=== PATIENT | female | born 1940 | race Caucasian/White ===

== ENCOUNTER 2019-07-26 14:24 | Emergency (ER) | payer MEDICARE, SELFPAY ==
--- NOTE | ~2019-07-26 | XR_ITS ---
EXAMINATION: XR abdomen/kub 1V INDICATION: Left kidney stone TECHNIQUE: Supine views of the abdomen were obtained on 2 radiographs. COMPARISON: CT from today FINDINGS: A 4 mm stone is noted in the lower pole of the left kidney. No additional abnormal calcific ations identified. The bowel gas pattern is normal. There is a small right pleural effusion. IMPRESSION: 1. Left nephrolithiasis. Reviewed, dictated and finalized at location A. IMPRESSION: 1. Left nephrolithiasis.
--- NOTE | ~2019-07-26 | CT_ITS ---
EXAMINATION: CT abdomen pelvis wo con DATE: 07/26/2019 15:18 INDICATION: Hematuria TECHNIQUE: Computed tomography (CT) of the abdomen and pelvis was performed without intravenous contr ast. The dose-length product (DLP) was 170.70 mGy-cm. Automated exposure control and iterative recons truction technique were employed. COMPARISON: 01/31/2015 FINDINGS: There is a small right pleural effusion. Mild atelectasis is noted in the visualized lung b ases. The heart size is normal. The liver surface is nodular. The spleen, pancreas, and adrenal gland s are normal. There is a 4 mm nonobstructing stone in the lower pole of the left kidney. The right ki dney is unremarkable. No stones are identified in the ureters or bladder. There is no hydronephrosis or hydroureter. No pathologically enlarged abdominal or pelvic lymph nodes are identified. There is n o free intraperitoneal gas or evidence of bowel obstruction. There is calcified atherosclerosis of th e aorta and many of the other arteries. There is a chronic burst fracture of T12. IMPRESSION: 1. 4 mm nonobstructing stone of the left kidney lower pole. 2. Cirrhosis. 3. Small right pleural effusion. Reviewed, dictated and finalized at location A.
[2019-07-26 14:32] VITALS: BP 110/73; PULSE 114; RESP 20; TEMP 36.4; O2SAT 93
--- NOTE | 2019-07-26 15:10 | ED.FEMALEGU ---
HPI - Female Genitourinary General Chief complaint: Urogenital-Female Stated complaint: abnormal ua Time Seen by Provider: 07/26/19 14:35 Source: patient Mode of arrival: ambulatory Limitations: no limitations History of Present Illness HPI Narrative: Patient presents with chief complaint of painless hematuria for the past week. Patient states that her PCP Dr. Miramontes ordered a UA and when I received the results they called today and told her to present to the emergency department. Patient denies any fever, chills, dysuria, vomiting, diarrhea. Patient states that she has discomfort to the lower left side of her abdomen which has been steady and present for many years. Patient states she has no idea why she has been told to come to the emergency department or what needs to be performed. Patient has not had any increased needing her oxygen which is at 3 L by nasal cannula which she is at rest and for when she is out and active. Related Data Home Medications Medication Instructions Recorded Confirmed calcium carbonate 600 mg calcium 600 mg PO DAILY 05/24/19 (1,500 mg) tablet naproxen sodium 220 mg tablet 220 mg PO Q12H 05/24/19 umeclidinium 62.5 mcg-vilanterol 1 inhalation INHALATION DAILY 05/24/19 25 mcg/actuation powdr for inhalation multivitamin 1 tablet PO DAILY 07/26/19 07/26/19 therapeutic multivitamin 1 tablet PO DAILY 07/26/19 07/26/19 [Thera-Tabs] Allergies Allergy/AdvReac Type Severity Reaction Status Date / Time No Known Allergies Allergy Unverified 07/26/19 14:55 Review of Systems Review of Systems: Narrative: CONSTITUTIONAL: Denies fever, chills, or sweats. EYES: Denies visual changes, redness, or discharge. ENT: Denies rhinorrhea, congestion, sore throat, or otalgia. CARDIOVASCULAR: Denies chest pain, palpitations, or edema. RESPIRATORY: Denies cough or dyspnea. GASTROINTESTINAL: Reports baseline lower left abdominal pain, denies nausea, vomiting, or diarrhea. GENITOURINARY: Denies dysuria reports hematuria. SKIN: Denies rash or itching. MUSCULOSKELETAL: Denies back pain, joint pain, or myalgia. NEUROLOGIC: Denies headache, numbness, dizziness, or weakness. PSYCHIATRIC: Denies anxiety or depression. [facility] Social History Social History (Updated 07/26/19 @ 15:15 by Bennett López PA-C) Substance use: never Gender identity (if verbalized by the patient): Female Exam Narrative: Exam Narrative: GENERAL: Elderly, frail. HEAD: Normocephalic, atraumatic. EYES: PERRLA and EOMI. ENT: Nares clear, no rhinorrhea or epistaxis. Mucous membranes moist. Oropharynx without tonsillar hypertrophy exudate or other lesions. Bilateral TMs pearly hernandez nonbulging NECK: Bandage to right of neck. supple. CHEST: Clear to auscultation. No respiratory distress. Nasal cannula in place with 3 L of oxygen. HEART: Regular rate and rhythm. ABDOMEN: Soft, mild left lower tender with palpation, no suprapubic tenderness with palpation, nondistended, normal active bowel sounds. EXTREMITIES: Normal range of motion. No edema. SKIN: Warm, dry, no rash. NEURO: No focal deficits. Alert and oriented x3. PSYCH: Normal mood and affect. Course Course Emergency Course: Reviewed notes from [facility] urinalysis which show red blood cells in patient's urine. No bacteria outside of normal urogenital michael was detected. Vital Signs Vital signs: Vital Signs Temperature 97.6 F 07/26/19 14:32 Pulse Rate 114 H 07/26/19 14:32 Respiratory Rate 07/26/19 14:32 Blood Pressure 110/73 07/26/19 14:32 Pulse Oximetry 93 07/26/19 14:32 Temperature 97.6 F 07/26/19 14:32 Pulse Rate 114 H 07/26/19 14:32 Respiratory Rate 07/26/19 14:32 Blood Pressure 110/73 07/26/19 14:32 Pulse Oximetry 93 07/26/19 14:32 MDM - Female Genitourinary MDM Narrative Medical decision making narrative: Consult with Dr. Taylor who is collection coordinator for Dr. Miramontes. He states to have the patient follow-up in the office and they refe
[2019-07-26 16:40] VITALS: BP 114/60; PULSE 102; RESP 16; TEMP 37; O2SAT 98
== END 2019-07-26 17:29 | disposition home or self-care (01) ==
PROVIDERS: Emergency Provider Family Medicine; PCP Internal Medicine
DX: R31.9 Hematuria, unspecified (principal); K74.60 Unspecified cirrhosis of liver; N20.0 Calculus of kidney
CPT/HCPCS: 74018; 74176; 99284

== ENCOUNTER 2020-02-11 15:06 | Emergency (ER) | payer MEDICARE, SELFPAY ==
--- NOTE | ~2020-02-11 | CT_ITS ---
EXAMINATION: CT abdomen pelvis w con DATE: 02/11/2020 17:01 INDICATION: Left lower quadrant abdominal pain radiating to the left groin. TECHNIQUE: Computed tomography (CT) of the abdomen and pelvis was performed with 100 mL Omnipaque-350 intravenous contrast. Automated exposure control and iterative reconstruction technique were employe d. The dose-length product was 261.87 mGy-cm. COMPARISON: 07/26/2019 FINDINGS: Small right pleural effusion. Atelectasis at the medial aspect of the right lower lobe and posteromed ial aspect of the left lower lobe. Moderate emphysema. Cardiomegaly. Atherosclerotic coronary artery calcification. No pericardial effusion. Chronic nonunited sternal fracture. Tortuous thoracic aorta. Nodular cirrhotic liver. Gallbladder, spleen, pancreas and bilateral adrenal glands are normal. There are multiple subcentimeter bilateral renal cysts. 5 mm stone at a lower pole calyx of the left kidne y. No ureteral stones. There is mild urothelial thickening and enhancement at the left renal pelvis a nd proximal most left ureter which does raise some concern for ascending urinary tract infection. No hydronephrosis. Bladder is normal. Large amount of stool scattered throughout the colon. No bowel obs truction. The appendix is not visualized. No pericecal inflammatory change to suggest acute appendici tis. The uterus is not identified and has likely been surgically resected. There is calcified atheros clerosis of the aorta and several of the other arteries. No free intraperitoneal gas or fluid. No pat hologically enlarged abdominal or pelvic lymphadenopathy. Stable appearance of T11 compression fractu re and T12 burst fracture. IMPRESSION: 1. Nonobstructing 5 mm left renal stone. No other urolithiasis or hydronephrosis. 2. Mild enhancing urothelial thickening at the left renal pelvis and proximal ureter. Correlate clini go with urinalysis to exclude ascending urinary tract infection. 3. Cirrhosis. 4. Small right pleural effusion. 5. Cardiomegaly. Reviewed, dictated and finalized at location A. IMPRESSION: 1. Nonobstructing 5 mm left renal stone. No other urolithiasis or hydronephrosi s. 2. Mild enhancing urothelial thickening at the left renal pelvis and proximal u reter. Correlate clinically with urinalysis to exclude ascending urinary tract infection. 3. Cirrhosis. 4. Small right pleural effusion. 5. Cardiomegaly.
--- NOTE | 2020-02-11 15:08 | PC.NURSE ---
patient's contact: Addis Forrest, , friend of patient.
[2020-02-11] MEDS: SODIUM CHLORIDE 0.9% IV 1,000 ML 999 ML IV CONT (15:42)
[2020-02-11 15:43] LABS: Basophils Percent Auto 0.4 % (0.2-1.2); Eosinophils Percent Auto 0.4 % (0-4.4); Hematocrit 40.9 % (37.0-47.0); Hemoglobin 13.7 g/dL (12.0-15.0); Immature Granulocyte Absolute 0.01 K/mm3 (0.00-0.031); Immature Granulocyte Percent A 0.2 % (0-0.5); Lymphocytes Absolute Auto 1.04 K/mm3 (0.9-3.2); Lymphocytes Percent Auto 19.4 % (18.3-44.2); Mean Corpuscular HGB Conc 33.5 g/dl (32-36); Mean Corpuscular Hemoglobin 31.1 pg (26-34); Mean Platelet Volume 9.7 fl (7.4-10.4); Monocytes Absolute Auto 0.5 K/mm3 (0.1-0.6); Monocytes Percent Auto 9.9 % (2.6-8.5); Neutrophils Absolute Auto 3.7 K/mm3 (1.3-6.7); Neutrophils Percent Auto 69.7 % (45.5-73.1); Platelet Count Result 156 k/mm3 (150-375); Red Cell Distribution Width 13.1 % (11.5-14.5); White Blood Count 5.4 K/mm3 (4.5-10.0)
[2020-02-11 15:47] LABS: Alanine Aminotransferase 24 U/L (4-35); Albumin Level 3.8 g/dL (3.5-5.1); Alkaline Phosphatase 176 U/L (38-126); Anion Gap 4 mmol/L (8-16); Aspartate Amino Transferase 42 U/L (14-36); Blood Urea Nitrogen 18 mg/dL (7-17); Calcium 9.1 mg/dL (8.4-10.2); Carbon Dioxide 36 mmol/L (22-30); Chloride 100 mmol/L (98-107); Estimated Glomerular Filt Rate > 60; Glucose 109 mg/dL (65-105); Potassium 3.8 mmol/L (3.4-5.0); Sodium 140 mmol/L (137-145)
[2020-02-11 15:48] LABS: Partial Thromboplastin Time 28.6 SECONDS (22.3-36.8)
[2020-02-11 15:54] VITALS: BP 141/98; PULSE 100; RESP 18; TEMP 36.3; O2SAT 100
[2020-02-11 16:37] LABS: Add Urine Microscopic? YES; Appearance Urine Clear (Clear); Bilirubin Urine Negative (Negative); Blood Urine Negative (Negative); Calcium Oxalate Crystals Urine Present /hpf; Color Urine Yellow (Yellow); Glucose Urine UA Negative (Negative); Ketones Urine Trace mg/dL (Negative); Leukocyte Esterase Ur Negative LEU/UL (Negative); Mucus Urine Rare /lpf; Nitrate Urine Negative (Negative); Protein Urine Negative (Negative); Specific Grav Ur 1.013 (1.001-1.035); Squamous Epithelial Cell Urine Occasional /hpf (Few); Urobilinogen Urine Negative mg/dL (<2.0); WBC Urine 0-3 /hpf
--- NOTE | 2020-02-11 17:42 | ED.ABDPAIN ---
HPI - Abdominal Pain General Chief Complaint: Urogenital-Female Stated Complaint: Left Groin Pain Time Seen by Provider: 02/11/20 15:08 Source: RN notes reviewed History of Present Illness HPI narrative: Patient presents emergency department from home for left lower abdominal pain. Patient states she is had left lower abdominal pain described as cramping that radiates in her right back for the past 3 days. Patient states that she was seen in the urgent care for dysuria on the and prescribed initially Keflex and was called 2 days later and switched to Macrobid which she has been taking. She states that she continues have pain left lower abdomen rating surround to the back. She denies any fevers or chills chest pain nausea vomiting diarrhea or any other symptoms. States she has been taking the Macrobid as prescribed and did take an Aleve today with minimal relief. States she does have an appointment scheduled with Dr. Mitchell on Friday patient is chronically on O2 via nasal cannula Related Data Home Medications Medication Instructions Recorded Confirmed calcium carbonate 600 mg calcium 600 mg PO DAILY 05/24/19 (1,500 mg) tablet naproxen sodium 220 mg tablet 220 mg PO Q12H 05/24/19 umeclidinium 62.5 mcg-vilanterol 1 inhalation INHALATION DAILY 05/24/19 25 mcg/actuation powdr for inhalation multivitamin 1 tablet PO DAILY 07/26/19 07/26/19 therapeutic multivitamin 1 tablet PO DAILY 07/26/19 07/26/19 [Thera-Tabs] Allergies Allergy/AdvReac Type Severity Reaction Status Date / Time aspirin Allergy Unknown Verified 07/27/19 13:48 celecoxib Allergy Unknown Verified 07/27/19 13:48 NSAIDS (Non-Steroidal Allergy Unknown Verified 07/27/19 13:48 Anti-Inflamma Review of Systems Review of Systems: Narrative: Gen.: Denies fevers or chills ENT: Denies congestion Respiratory: Chronic shortness of breath with no current change CV: Denies chest pain or palpitations GI: See HPI denies burning, urgency, frequency or hematuria Musculoskeletal: Denies back pain or muscle pain Neuro: Denies numbness, tingling, weakness or focal weakness Skin: Denies rash Except as documented, all other systems reviewed and negative PMFSH Past Medical History Medical History Acute atopic conjunctivitis of both eyes Adult hypothyroidism Encounter for long-term (current) use of other medications Osteoporosis Primary biliary cirrhosis Social History Social History Smoking status: Former smoker Smoking end date: 05/12/87 Alcohol intake: never Substance use: never Gender identity (if verbalized by the patient): Female Exam Narrative: Exam Narrative: APPEARANCE: No acute distress, nontoxic, resting in bed HEENT: Normocephalic, atraumatic, OMM RESPIRATORY: No respiratory distress, clear to auscultation bilaterally with no rhonchi wheezing or rales CARDIOVASCULAR: RRR s murmur ABDOMINAL: Soft, nondistended, mild tenderness in left lower abdomen, no tenderness right lower quadrant and right upper quadrant left upper quadrant, no rebound or guarding, no overlying erythema or rash MUSCULOSKELETAl: Moves all extremities. No clubbing, cyanosis or edema. NEURO: Awake and alert. Following commands, speech normal, no focal deficits SKIN:: Warm, dry. Normal Color PSYCHIATRIC: Normal affect/mood Course Course Emergency Course: Discussed with Dr. Correa for urology presentation work-up discussed CT results. Request the patient have Macrobid for total of 5 days. Agrees with plan for presumed discharge and follow-up with Dr. Mitchell in office Patient states that they are feeling much better at this time. States abdominal pain has resolved. Repeat abdominal exam shows the patient's abdomen to be soft and nontender. Discussed with patient results of workup and diagnosis. Discussed need for follow-up with primary care physician,
[2020-02-11] MEDS: PHENAZOPYRIDINE HCL 100 MG TABLET PO (17:59)
== END 2020-02-11 18:04 | disposition home or self-care (01) ==
PROVIDERS: Emergency Provider Emergency Medicine; PCP Internal Medicine
DX: N39.0 Urinary tract infection, site not specified (principal); E03.9 Hypothyroidism, unspecified; M81.0 Age-related osteoporosis without current pathological fracture; K74.5 Biliary cirrhosis, unspecified; I51.7 Cardiomegaly; N20.0 Calculus of kidney; Z87.891 Personal history of nicotine dependence
CPT/HCPCS: 36415; 74177; 80053; 81001; 85025; 85610; 85730; 96361; 96374; 99284; A9270; J0131; J7030; Q9967

== ENCOUNTER 2020-02-14 07:29 | Emergency (ER) | payer MEDICARE, SELFPAY ==
[2020-02-14] VITALS (25 sets, daily range): BP systolic 125–162; BP diastolic 80–95; PULSE 90–108; RESP 12–14; TEMP 36.8; O2SAT 100
--- NOTE | ~2020-02-14 | CT_ITS ---
EXAMINATION: CT abdomen pelvis wo con EXAM DATE: 02/14/2020 08:37 INDICATION: Romeo tract infection, left flank pain. Kidney stones. TECHNIQUE: Spiral CT of the abdomen and pelvis was performed without contrast. Axial, coronal and sag ittal images were reviewed. The dose-length product (DLP) for this examination was 161.68 mGy-cm. T he exposure was tailored according to patient size (auto mA exposure control), and iterative reconstr uction (ASIR) was used as additional dose reduction technique. Comparison is made to prior examinatio n from 02/11/2020. FINDINGS: There is a 5 mm left inferior calyceal stone. No hydronephrosis. The uterus is not identif ied and has likely been surgically resected. The bladder is unremarkable. Nodular liver contour con sistent with cirrhosis. The portal vein appears dilated, likely indicating portal hypertension. The s pleen is normal in size. The adrenal glands and pancreas are unremarkable. Gallbladder is unremarkab le. No biliary obstruction. There is no retroperitoneal or pelvic lymphadenopathy. There is mild to moderate scattered arteriosclerotic disease. The appendix is not positively visualized. There is no pericecal inflammatory change to suggest appe ndicitis. The stomach and small bowel are unremarkable. There is expected amount of colonic stool. No free intraperitoneal gas. There is cardiomegaly. Small right pleural effusion. Small pericar dial effusion. There are no osteoblastic or osteolytic lesions identified. IMPRESSION: 1. Cirrhosis. Probable portal hypertension. 2. Left nephrolithiasis. No hydronephrosis. 3. Small pericardial, right pleural effusions. Reviewed, dictated and finalized at location B.
--- NOTE | 2020-02-14 07:32 | ED.ABDPAIN ---
HPI - Abdominal Pain General Chief Complaint: Unspecified Stated Complaint: left groin pain Time Seen by Provider: 02/14/20 07:32 Source: patient and family Mode of arrival: wheelchair Limitations: no limitations History of Present Illness HPI narrative: Patient is a 79-year-old female with a history of COPD, chronically on 4 to 5 L, recently diagnosed with urinary tract infection taking Macrobid, who presents for evaluation of recurrent left lower abdominal pain and flank pain. Patient states that she has had continued pain despite antibiotic and pain medication at home. She denies fever, chills, nausea or vomiting. Pain is sharp at times, cramping in nature in the left lower abdomen. Patient states she feels like her bladder is somewhat distended. She has had orange urine color and has not noticed any hematuria with the use of the antibiotic. She states she has not missed any doses of antibiotic. Patient states she was seen here in the ER on February 10, she does have a 5 mm left renal stone but was told that would not be the cause of her pain. Patient set to follow-up with Dr. Mitchell today in office. Related Data Home Medications Medication Instructions Recorded Confirmed calcium carbonate 600 mg calcium 600 mg PO DAILY 05/24/19 (1,500 mg) tablet naproxen sodium 220 mg tablet 220 mg PO Q12H 05/24/19 umeclidinium 62.5 mcg-vilanterol 1 inhalation INHALATION DAILY 05/24/19 25 mcg/actuation powdr for inhalation multivitamin 1 tablet PO DAILY 07/26/19 07/26/19 therapeutic multivitamin 1 tablet PO DAILY 07/26/19 07/26/19 [Thera-Tabs] Allergies Allergy/AdvReac Type Severity Reaction Status Date / Time aspirin Allergy Unknown Verified 07/27/19 13:48 celecoxib Allergy Unknown Verified 07/27/19 13:48 NSAIDS (Non-Steroidal Allergy Unknown Verified 07/27/19 13:48 Anti-Inflamma Review of Systems Review of Systems: Narrative: CONSTITUTIONAL: Denies fever, chills, or sweats. CARDIOVASCULAR: Denies chest pain RESPIRATORY: Denies cough, reports chronic dyspnea GASTROINTESTINAL: Reports left lower quadrant abdominal pain, denies nausea, vomiting or diarrhea GENITOURINARY: Denies dysuria or hematuria. SKIN: Denies rash or itching. MUSCULOSKELETAL: Denies back pain, joint pain, or myalgia. NEUROLOGIC: Denies headache, numbness, or weakness. [facility] Past Medical History Medical History Acute atopic conjunctivitis of both eyes Adult hypothyroidism COPD (chronic obstructive pulmonary disease) Encounter for long-term (current) use of other medications Osteoporosis Primary biliary cirrhosis Social History Social History Smoking status: Former smoker Smoking end date: 05/12/87 Alcohol intake: never Substance use: never Gender identity (if verbalized by the patient): Female Exam Narrative: Exam Narrative: GENERAL: Awake, alert, conversant, chronically ill-appearing, thin HEAD: Normocephalic, atraumatic. EYES: PERRLA and EOMI. ENT: Nares clear, no rhinorrhea or epistaxis. Mucous membranes moist. NECK: Supple. CHEST: No respiratory distress, nasal cannula in place HEART: Tachycardic rate, sinus rhythm ABDOMEN: Scaphoid, non distended, mild left lower quadrant tenderness without rebound, rigidity or guarding EXTREMITIES: Normal range of motion. No edema. SKIN: Pale, warm, dry, no rash. NEURO:No focal deficits. Alert and oriented x3 Course Vital Signs Vital signs: Vital Signs Pulse Rate 98 02/14/20 07:46 Respiratory Rate 12 02/14/20 07:46 Pulse Oximetry 100 02/14/20 07:46 Temperature 36.8 C 02/14/20 07:49 Pulse Rate 96 02/14/20 09:45 Respiratory Rate 12 02/14/20 09:45 Blood Pressure 157/86 H 02/14/20 09:45 Pulse Oximetry 100 02/14/20 09:46 MDM - Abdominal Pain MDM Narrative Medical decision making narrative: Patient presented for recurrent left-sided abd
[2020-02-14] MEDS: ONDANSETRON INJ 4 MG/2 ML VIAL IV PUSH (08:11)
[2020-02-14] MEDS: SODIUM CHLORIDE 0.9% IV 500 ML 999 ML IV CONT (08:11)
[2020-02-14] MEDS: MORPHINE SULFATE (*CRX) 4 MG/ML INJ 2 MG IV PUSH (08:11)
[2020-02-14 08:25] LABS: Basophils Percent Auto 0.6 % (0.2-1.2); Eosinophils Percent Auto 0.4 % (0-4.4); Hematocrit 38.4 % (37.0-47.0); Hemoglobin 12.7 g/dL (12.0-15.0); Immature Granulocyte Absolute 0.01 K/mm3 (0.00-0.031); Immature Granulocyte Percent A 0.2 % (0-0.5); Immature Platelet Fraction Pct 3.7 % (0.9-11.2); Lymphocytes Absolute Auto 1.09 K/mm3 (0.9-3.2); Lymphocytes Percent Auto 22.9 % (18.3-44.2); Mean Corpuscular HGB Conc 33.1 g/dl (32-36); Mean Corpuscular Hemoglobin 30.9 pg (26-34); Mean Corpuscular Volume 93.4 fl (80-100); Monocytes Absolute Auto 0.6 K/mm3 (0.1-0.6); Monocytes Percent Auto 12.4 % (2.6-8.5); Neutrophils Percent Auto 63.5 % (45.5-73.1); Red Blood Count 4.11 M/mm3 (4.2-5.4); Red Cell Distribution Width 13.2 % (11.5-14.5); White Blood Count 4.8 K/mm3 (4.5-10.0)
[2020-02-14 08:35] LABS: Platelet Clumps Present; Platelet Estimate Adequate (Adequate)
[2020-02-14 08:36] LABS: Alanine Aminotransferase 26 U/L (4-35); Albumin Level 3.6 g/dL (3.5-5.1); Alkaline Phosphatase 150 U/L (38-126); Anion Gap 5 mmol/L (8-16); Aspartate Amino Transferase 44 U/L (14-36); Bilirubin,Total 1.1 mg/dL (0.2-1.3); Blood Urea Nitrogen 19 mg/dL (7-17); Carbon Dioxide 35 mmol/L (22-30); Chloride 101 mmol/L (98-107); Estimated CRCL calculation 39 ml/min; Estimated Glomerular Filt Rate > 60; Glucose 130 mg/dL (65-105); Potassium 3.3 mmol/L (3.4-5.0); Sodium 141 mmol/L (137-145)
[2020-02-14 09:35] LABS: Add Urine Microscopic? YES; Appearance Urine Clear (Clear); Bilirubin Urine Negative (Negative); Blood Urine Negative (Negative); Calcium Oxalate Crystals Urine Present /hpf; Color Urine Amber (Yellow); Glucose Urine UA Negative (Negative); Ketones Urine Trace mg/dL (Negative); Leukocyte Esterase Ur Negative LEU/UL (Negative); Mucus Urine Rare /lpf; Nitrate Urine Positive (Negative); Protein Urine 2+ mg/dL (Negative); RBC Urine 0-2 /hpf (0-2); Specific Grav Ur 1.016 (1.001-1.035); Squamous Epithelial Cell Urine Occasional /hpf (Few); WBC Urine 0-3 /hpf
== END 2020-02-14 11:15 | disposition home or self-care (01) ==
PROVIDERS: Emergency Provider Emergency Medicine; PCP Internal Medicine
DX: N39.0 Urinary tract infection, site not specified (principal); J44.9 Chronic obstructive pulmonary disease, unspecified; Z99.81 Dependence on supplemental oxygen; K74.3 Primary biliary cirrhosis; E03.9 Hypothyroidism, unspecified; M81.0 Age-related osteoporosis without current pathological fracture; Z87.891 Personal history of nicotine dependence; N20.0 Calculus of kidney
CPT/HCPCS: 36415; 51701; 74176; 80053; 81001; 85025; 85055; 96361; 96374; 96375; 99284; J2270; J2405; J7040

== ENCOUNTER → 2020-03-01 12:57 | Outpatient (CLI) | payer MEDICARE, SELFPAY ==
--- NOTE | ~2020-03-01 | XR_ITS ---
EXAMINATION: XR thoracic spine 3V EXAM DATE: 03/01/2020 13:38 INDICATION: M54.9 - Dorsalgia, unspecified, hx of lung cancer . TECHNIQUE: Frontal and lateral projections of the thoracic spine as well as lateral swimmers projecti on of the upper thoracic spine for interpretation. Comparison is made to prior examination from 2013. FINDINGS: There are at least 5 consecutive mild to moderate mid thoracic compression fractures causi ng kyphosis. On previous examination there were only 3 mild compression fractures in this location. If patient has acute back pain, can't exclude acute component to one or more of these. There is mild thoracic disc disease. Bones are osteopenic. Also mild to moderate compression fractures at 2 consecutive lower thoracic levels, probably T11 and T12, which do not appear significantly changed. Right suprahilar surgical changes. There is aortic ar teriosclerosis. IMPRESSION: 1. Multiple thoracic compression fractures. 2. Kyphosis. Reviewed, dictated and finalized at location A.
--- NOTE | ~2020-03-01 | XR_ITS ---
XR lumbar spine 2-3V 03/01/2020 13:38 Indication: Low back pain. Procedure: 3 views lumbar spine Comparison: 10/05/2013 Findings: There is a chronic compression fracture of T12. There is mild multilevel facet hypertrophy of the lower lumbar spine. Osteopenia. No acute fracture or traumatic malalignment. No evidence for s pondylolysis or spondylolisthesis. Pedicles intact. Sacral foramen are symmetric. Impression: 1: Mild lumbar spondylosis. 2: Chronic wedge compression fracture of T12, unchanged. Reviewed, dictated and finalized at location B. Impression: 1: Mild lumbar spondylosis. 2: Chronic wedge compression fracture of T12, unchanged.
== END ==
PROVIDERS: PCP Internal Medicine; Visit Provider Internal Medicine
DX: R10.9 Unspecified abdominal pain (principal); S22.000A Wedge compression fracture of unspecified thoracic vertebra, initial encounter for closed fracture; X58.XXXA Exposure to other specified factors, initial encounter; M47.896 Other spondylosis, lumbar region
CPT/HCPCS: 72072; 72100

== ENCOUNTER 2020-11-27 13:59 | Inpatient (IN) | payer MEDICARE, SELFPAY ==
[2020-11-27] VITALS (34 sets, daily range): BP systolic 133–177; BP diastolic 70–90; PULSE 101–112; RESP 18–37; TEMP 36.8; O2SAT 89–96; BMI 18.3
--- NOTE | ~2020-11-27 | US_ITS ---
EXAMINATION: US thoracentesis DATE: 11/28/2020 10:22 INDICATION: Right pleural effusion TECHNIQUE: The procedure and its risks and benefits were discussed with the patient. Potential risks discussed included bleeding, infection, and pneumothorax. The patient understood the risks and agreed to proceed. The skin was prepped and draped in sterile fashion. 1% lidocaine was used for local anes thesia. Under ultrasound guidance, a 5 Fr catheter with trochar was advanced into the right pleural e ffusion. Fluid was aspirated. The catheter was removed, and a dressing was applied. There were no imm ediate complications. FINDINGS: Ultrasound images demonstrate a moderate-sized right pleural effusion and the catheter within the flu id. IMPRESSION: 1. Successful ultrasound-guided thoracentesis yielding 850 mL of cloudy hattie-colored fluid. Reviewed, dictated and finalized at location A. IMPRESSION: 1. Successful ultrasound-guided thoracentesis yielding 850 mL of cloudy hattie- colored fluid.
--- NOTE | ~2020-11-27 | XR_ITS ---
EXAMINATION: XR chest 2V DATE: 11/27/2020 15:02 INDICATION: Shortness of breath and hypoxia TECHNIQUE: AP and lateral views of the chest are obtained. COMPARISON: 07/04/2014 FINDINGS: There are changes of right upper lobectomy. A [id number] sized right pleural effusio n is present. There is a small left pleural effusion. There are airspace opacities at the periphery o f the left midlung zone. There is also opacity projecting over the right mid and upper right lung zon e which could reflect fissural fluid. No pneumothorax is identified. There is a 12 mm nodule of the l eft lung base. The heart size is obscured. There are chronic thoracic compression fractures. IMPRESSION: 1. Small to moderate-sized right pleural effusion and small left pleural effusion. 2. Airspace opacities of the left midlung zone and nodular opacity of the left lung base which could be infectious or malignant. Follow-up with CT of the chest is recommended. Reviewed, dictated and finalized at location B. IMPRESSION: 1. Small to moderate-sized right pleural effusion and small left pleural effusi on. 2. Airspace opacities of the left midlung zone and nodular opacity of the left lung base which could be infectious or malignant. Follow-up with CT of the ches t is recommended.
--- NOTE | ~2020-11-27 | XR_ITS ---
EXAMINATION: [id number] DATE: 11/28/2020 10:15 INDICATION: Thoracentesis TECHNIQUE: AP and lateral views of the chest were obtained. COMPARISON: Chest radiograph dated 11/27/2020 FINDINGS: Masslike opacity projecting over the lateral left midlung zone concerning for malignancy. Changes of prior right upper lobectomy with volume loss in the right hemithorax, elevation the right hilum and m ultiple surgical clips and suture lines. Near-complete resolution of the prior right pleural effusion . No pulmonary edema, pneumothorax or left-sided pleural effusion. Cardiomegaly. Thoracic kyphosis wi th several chronic compression fractures in the mid and lower thoracic spine. IMPRESSION: 1. Near complete resolution of a prior right pleural effusion postthoracentesis. 2. Masslike opacity in the lateral left midlung zone raising concern for malignancy with differential including pneumonia. 3. Postoperative change of prior right upper lobectomy. 4. Cardiomegaly Reviewed, dictated and finalized at location A. IMPRESSION: 1. Near complete resolution of a prior right pleural effusion postthoracentesis . 2. Masslike opacity in the lateral left midlung zone raising concern for malign robin with differential including pneumonia. 3. Postoperative change of prior right upper lobectomy. 4. Cardiomegaly
--- NOTE | ~2020-11-27 | CT_ITS ---
EXAMINATION: CTA chest PE protocol EXAM DATE: 11/27/2020 17:43 INDICATION: Shortness of breath. TECHNIQUE: Spiral CTA of the chest (pulmonary arteries) was performed with 100 cc Omnipaque 350 intr avenous contrast injection. Images were acquired during the pulmonary arterial phase. Coronal maxi mum intensity projection 3D-reconstructions were created by the technologist on dedicated workstation . Axial, coronal and sagittal reformatted images were reviewed. The dose-length product (DLP) for t his examination was 139.52 mGy-cm. The exposure was tailored according to patient size (auto mA exp osure control), and iterative reconstruction (ASIR) was used as additional dose reduction technique. Correlation is made to chest x-ray same date. FINDINGS: Pulmonary arteries are well opacified and without intraluminal filling defects. No thora cic aortic dissection. The ascending aorta measures 4.2 cm, mildly aneurysmal. There is severe emphys roseann. Tracheobronchial tree is patent. There is no mediastinal, hilar or axillary lymphadenopathy. There is no pneumothorax. Mild cardiomegaly. There are surgical changes from right upper lobectomy with right-sided volume loss. Superimposed mode rate to large right pleural effusion with adjacent subsegmental right lower lobe atelectasis. Trace l eft pleural effusion and small pericardial effusion. There is pleural-based left upper lobe airspace disease measuring about 3 cm in diameter by 1 cm in t hickness, ill-defined margins. This could be infection or cancer. There are 2 other left suprahilar n odules measuring 7 and 5 mm, indeterminate. Patulous appearing esophagus with air-fluid level, could indicate reflux. There are some liver surfac e undulations, probable cirrhosis. Multiple compression and burst fractures without evidence of cent ral canal stenosis. IMPRESSION: 1. Moderate to large right pleural effusion, adjacent segmental right lower lobe atelectasis. 2. Left upper lobe peripheral airspace disease probably infection or cancer. 2 other indeterminate l eft upper lobe nodules. 3. Severe emphysema. 4. Probable cirrhosis. 5. Other chronic findings. Reviewed, dictated and finalized at location A. IMPRESSION: 1. Moderate to large right pleural effusion, adjacent segmental right lower lo be atelectasis. 2. Left upper lobe peripheral airspace disease probably infection or cancer. 2 other indeterminate left upper lobe nodules. 3. Severe emphysema. 4. Probable cirrhosis. 5. Other chronic findings.
--- NOTE | ~2020-11-27 | XR_ITS ---
EXAMINATION: XR chest 1V portable DATE: 11/29/2020 07:45 INDICATION: Follow-up right pleural effusion TECHNIQUE: frontal view of the chest was obtained. COMPARISON: Chest radiograph dated 11/28/2020 FINDINGS: Status post right upper lobectomy with relative volume loss in the right hemithorax, elevation of the right hemidiaphragm and multiple surgical clips and suture lines. Hyperexpansion of lungs with incre ased lucency and architectural distortion in the upper lung zones consistent with emphysema. Residual small right pleural effusion amount primarily loculated at the apex. Unchanged masslike opacity in t he left midlung zone. Mild discoid atelectasis at the left lung base.Cardiomegaly. IMPRESSION: 1. Unchanged small right pleural effusion predominantly loculated at the right apex where there are c hanges of prior right upper lobectomy. 2. Masslike opacity at the left midlung zone concerning for malignancy with differential including pn eumonia. 3. Cardiomegaly. Reviewed, dictated and finalized at location A. IMPRESSION: 1. Unchanged small right pleural effusion predominantly loculated at the right apex where there are changes of prior right upper lobectomy. 2. Masslike opacity at the left midlung zone concerning for malignancy with dif ferential including pneumonia. 3. Cardiomegaly.
--- NOTE | 2020-11-27 14:11 | ECG_ITS ---
Measurements Intervals [place] Rate: 106 P: 82 OR: 145 QRS: 23 QRSD: 82 T: 58 QT: 338 QTc: 450 Interpretive Statements SINUS TACHYCARDIA ATRIAL PREMATURE COMPLEXES BASELINE ARTIFACT- I, II, III, AVR, AVL, AVF, V3-V6 ABNORMAL ECG Electronically Signed On 11-27-2020 14:23:03 CDT by Jovani Moody D.O.
[2020-11-27 15:30] LABS: Basophils Percent Auto 0.4 % (0.2-1.2); Hematocrit 36.9 % (37.0-47.0); Hemoglobin 11.7 g/dL (12.0-15.0); Immature Granulocyte Absolute 0.01 K/mm3 (0.00-0.031); Immature Granulocyte Percent A 0.2 % (0-0.5); Lymphocytes Percent Auto 11.2 % (18.3-44.2); Mean Corpuscular HGB Conc 31.7 g/dl (32-36); Mean Corpuscular Hemoglobin 30.5 pg (26-34); Mean Corpuscular Volume 96.1 fl (80-100); Mean Platelet Volume 9.2 fl (7.4-10.4); Monocytes Absolute Auto 0.4 K/mm3 (0.1-0.6); Monocytes Percent Auto 7.8 % (2.6-8.5); Neutrophils Absolute Auto 3.6 K/mm3 (1.3-6.7); Neutrophils Percent Auto 80.4 % (45.5-73.1); Platelet Count Result 134 k/mm3 (150-375); Red Blood Count 3.84 M/mm3 (4.2-5.4); Red Cell Distribution Width 13.8 % (11.5-14.5); White Blood Count 4.5 K/mm3 (4.5-10.0)
[2020-11-27 15:46] LABS: Anion Gap 4 mmol/L (8-16); Blood Urea Nitrogen 16 mg/dL (7-17); Calcium 8.9 mg/dL (8.4-10.2); Carbon Dioxide 35 mmol/L (22-30); Chloride 100 mmol/L (98-107); Estimated CRCL calculation 47 ml/min; Estimated Glomerular Filt Rate > 60; Glucose 89 mg/dL (65-110); Potassium 3.9 mmol/L (3.4-5.0); Sodium 139 mmol/L (137-145)
[2020-11-27] MEDS: IPRATROPIUM BR 0.02% INH SOLN 0.5 MG/2.5 ML VIAL INHALATION (16:41)
[2020-11-27] MEDS: ALBUTEROL SULFATE NEB 2.5 MG/0.5 ML INH 5 MG INHALATION (16:41)
[2020-11-27 16:52] LABS: Alveolar/Arterial O2 Gradient 161.6 mmHg; Base Excess ABG 9.4 mEq/l (+/-2.0); Carboxyhemoglobin 0.4 % THb (0-2.0); Device NASAL CANNULA; Fractional Inspired Oxygen 40 %; HCO3 ABG 35.5 mEq/l (22.0-26.0); Methemoglobin ABG 0.3 %THb (0-1.5); Oxygen Saturation ABG 90.9 % (95.0-100.0); Oxyhemoglobin 91.7 % THb (90.0-100.0); PCO2 ABG 55.5 mmHg (35.0-45.0); PO2 ABG 59.8 mmHg (80.0-100.0); Reduced Hemoglobin 7.6 %THb (0-5.0); Site Drawn LEFT BRACHIAL; Total Hemoglobin 12.4 g/dL (12.0-18.0); pH ABG 7.424 (7.350-7.450)
[2020-11-27 17:14] LABS: Add Urine Microscopic? YES; Appearance Urine Cloudy (Clear); Bacteria Urine 2+ /hpf; Bilirubin Urine Negative (Negative); Blood Urine 1+ (Negative); Calcium Oxalate Crystals Urine Present /hpf; Color Urine Amber (Yellow); Glucose Urine UA Negative (Negative); Ketones Urine Trace mg/dL (Negative); Leukocyte Esterase Ur Negative LEU/UL (Negative); Mucus Urine Few /lpf; Nitrate Urine Negative (Negative); Protein Urine 1+ mg/dL (Negative); Squamous Epithelial Cell Urine Many /hpf (Few)
[2020-11-27 17:17] LABS: Partial Thromboplastin Time 27.5 SECONDS (22.3-36.8)
[2020-11-27 17:20] LABS: Lactic Acid Reflex 0.8 mmol/L (0.7-2.1)
[2020-11-27 17:22] LABS: CRP < 0.5 mg/dL (<1.0); INR 0.9; Prothrombin Time 12.3 Seconds (11.1-14.7)
[2020-11-27] MEDS: methylPREDNISolone SOD SUCC 125 MG VIAL 80 MG IV PUSH (17:48)
--- NOTE | 2020-11-27 17:59 | ED.SOB ---
HPI - SOB/Dyspnea General Chief Complaint: Shortness of Breath/Dyspnea Stated Complaint: SOB Time Seen by Provider: 11/27/20 16:04 Source: patient, EMS and RN notes reviewed Mode of arrival: EMS Limitations: no limitations History of Present Illness HPI Narrative: Patient is a 80-year-old female who presents to emergency department for evaluation of shortness of breath and hypoxemia over the last 2 days patient with chronic COPD 6 L nasal cannula all day notes that she has had a nonproductive cough some rhinorrhea and congestion patient is vaccinated for Covid. Patient denies fever chills night sweats or other complaints and on arrival is in no distress patient notes feeling more weak over the last 2 days with difficulty with ambulation attributed to the weakness and hypoxemia Related Data Home Medications Medication Instructions Recorded Confirmed umeclidinium 62.5 mcg-vilanterol 1 inhalation INHALATION DAILY 05/24/19 10/11/20 25 mcg/actuation powdr for inhalation Allergies Allergy/AdvReac Type Severity Reaction Status Date / Time aspirin Allergy Mild pt does Verified 10/11/20 10:57 not remember celecoxib Allergy Mild stomach Verified 10/11/20 10:57 irritation NSAIDS (Non-Steroidal Allergy Mild stomach Verified 10/11/20 10:57 Anti-Inflamma irriatation Review of Systems Review of Systems: All systems reviewed & are unremarkable except as noted in HPI and below PMFSH Past Medical History Medical History (Updated 11/27/20 @ 18:04 by Rolando Colon PA-C) Acute atopic conjunctivitis of both eyes Adult hypothyroidism COPD (chronic obstructive pulmonary disease) Encounter for long-term (current) use of other medications Osteoporosis Primary biliary cirrhosis Family History Family History Mother Carcinoma of colon Patient's mother is Father Patient's father is Family history of malignant neoplasm Sibling Patient's sister is Patient's sister is in good health, Onset Age: 78 Family history of malignant neoplasm of ovary, Onset Age: 76 Carcinoma of colon Other Family history of malignant neoplasm of breast Social History Social History Smoking packs per day: 2 Smoking cigarettes per day: 40.0 Years smoked: 27 Smoking pack-years: 54.00 Smoking status: Former smoker Tobacco type: cigarettes Second hand tobacco smoke exposure: Yes Smoking end date: 05/12/87 Alcohol intake: never Substance use: never Gender identity (if verbalized by the patient): Female Exam Narrative: Exam Narrative: GENERAL: Chronically ill-appearing, well-nourished, and in no acute distress. HEAD: Normocephalic, atraumatic. EYES: PERRLA and EOMI. ENT: Nares clear, no rhinorrhea or epistaxis. Mucous membranes moist. NECK: Supple. No adenopathy or masses. CHEST: Diminished on auscultation. No respiratory distress. Fine expiratory wheezes HEART: Regular rate and rhythm. No murmur heard. Normal peripheral pulses. ABDOMEN: Soft, nontender, nondistended EXTREMITIES: Normal range of motion. No edema. SKIN: Warm, dry, no rash. NEURO: No focal deficits. Alert and oriented x3. Cranial nerves II through XII grossly intact PSYCH: Normal mood and affect. Course Course Emergency Course: Patient will be placed in hospital for further evaluation of her pleural effusions and pneumonia antibiotics breathing treatments and steroids given in the emergency department will be placed into the hospital under the hospitalist service ABCs and vital signs intact and stable patient agrees with this plan Consultations Consultation #1: Discussed case with hospitalist Rashmi who has agreed to accept the patient Date: 11/27/20 Time: 18:01 Vital Signs Vital signs: Vital Signs Pulse Rate 108 H 11/27/20 14:01 Respiratory Rate 2
[2020-11-28] VITALS (16 sets, daily range): BP systolic 136–177; BP diastolic 72–98; PULSE 69–114; RESP 16–22; TEMP 36.4–37.1; O2SAT 94–99; BMI 18.3
--- NOTE | 2020-11-28 00:08 | PM.IMHP ---
H&P: HPI History of Present Illness Date/Time: 11/28/19 5013 this is a 80-year-old female patient who has a past medical history of COPD and on as well as lung cancer. She has had radiation to the right lower lobe in the past with a lobectomy. Patient is chronically on 6 L per nasal cannula at home. She sees a integrity analyst elsewhere. The patient presented to the emergency department for evaluation of shortness of breath that has been worse over the last 2 days. She has a nonproductive cough. She has been fully vaccinated for COVID-19. She has been feeling more weak over the last couple days. She has chronic lower back pain. Chest x-ray was read as small to moderate size right pleural effusions small left pleural effusion. Airspace opacities will of the left mid lung zones and nodularity opacity of the left lung base which could be infectious or malignant. Follow-up with CT of the chest is recommended. CTA was read as moderate to large right pleural effusion, adjunct segmental right lower lobe atelectasis. Left upper lobe peripheral airspace disease probably infection or cancer. Two other indeterminate left upper lobe nodules. Severe emphysema. Probable cirrhosis. Other chronic findings. The patient was started on azithromycin and Rocephin for community-acquired antibiotic stewardship. The patient was given IV Pepcid, nebulizer treatment, and Solu-Medrol. Patient is being admitted for observation on the date of service of Chief Complaint: shortness of breath Review of Systems Review of Systems: All systems reviewed & are unremarkable except as noted in HPI and below Constitutional: Constitutional: Reports as per HPI and Reports no additional constitutional complaints Eyes: Eyes: Reports as per HPI and Reports no additional eye complaints ENT: Reports system reviewed and no additional complaints, except as documented and Reports Normal hearing present Cardiovascular: Cardiovascular: Reports no additional cardiovascular complaints Respiratory: Respiratory: Reports no additional respiratory complaints and Reports no additional respiratory complaints Gastrointestinal: Gastrointestinal: Reports as per HPI and Reports no additional gastrointestinal complaints Musculoskeletal: Musculoskeletal: Reports no additional musculoskeletal complaints Integumentary/Breasts: Skin/Breast: Reports system reviewed and no additional complaints, except as docu and Reports as per HPI Neurologic: Reports system reviewed and no additional complaints, except as documented, Reports as per HPI and Reports Normal hearing present Psychiatric: Psychiatric: Reports no additional psychiatric complaints and Reports as per HPI Endocrine: Endocrine: Reports no additional endocrine complaints Hematologic/Lymphatic: Hematologic/Lymphatic: Reports no additional hematologic/lymphatic complaints Allergic/Immunologic: Allergic/Immunologic: Reports no additional allergic/immunologic complaints [facility] Past Medical History Medical History (Updated 11/28/20 @ 00:17 by Rashmi Jiang NP) Adult hypothyroidism Chronic back pain COPD (chronic obstructive pulmonary disease) Depression Encounter for long-term (current) use of other medications History of lung cancer right upper lobe with radiation and right upper lobectomy Hypothyroidism Osteoporosis Primary biliary cirrhosis Surgical History Surgical History (Updated 11/28/20 @ 00:17 by Rashmi Jiang NP) H/O: hysterectomy History of lobectomy of lung right upper History of tonsillectomy Family History Family History Mother Carcinoma of colon Patient's mother is Father Patient's father is Family history of malignant neoplasm Sibling Patient's sister is Patient's sister is in good health, Onset Age: 78 Family history of malignant neoplasm of ovary, Onset Age: 76 Carci
[2020-11-28] MEDS: LACTATED RINGERS 1,000 ML 75 ML IV CONT (00:19)
[2020-11-28] MEDS: FAMOTIDINE 20 MG/2 ML VIAL IV PUSH ×3 (00:19→21:11)
[2020-11-28] MEDS: ACETAMINOPHEN 325 MG TABLET 650 MG PO ×2 (00:22→18:27)
[2020-11-28] MEDS: ALBUTEROL SULFATE NEB 2.5 MG/0.5 ML INH 5 MG INHALATION ×2 (02:24→09:10)
[2020-11-28] MEDS: IPRATROPIUM BR 0.02% INH SOLN 0.5 MG/2.5 ML VIAL INHALATION ×4 (02:25→20:21)
[2020-11-28] MEDS: LEVOTHYROXINE SODIUM 75 MCG TABLET BY MOUTH (05:44)
[2020-11-28] MEDS: methylPREDNISolone SOD SUCC 125 MG VIAL 80 MG IV PUSH (05:44)
[2020-11-28 06:28] LABS: Hematocrit 34.7 % (37.0-47.0); Hemoglobin 11.3 g/dL (12.0-15.0); Immature Granulocyte Absolute 0.01 K/mm3 (0.00-0.031); Immature Granulocyte Percent A 0.3 % (0-0.5); Lymphocytes Absolute Auto 0.38 K/mm3 (0.9-3.2); Lymphocytes Percent Auto 10.8 % (18.3-44.2); Mean Corpuscular HGB Conc 32.6 g/dl (32-36); Mean Corpuscular Hemoglobin 30.4 pg (26-34); Mean Corpuscular Volume 93.3 fl (80-100); Mean Platelet Volume 9.1 fl (7.4-10.4); Monocytes Absolute Auto 0.3 K/mm3 (0.1-0.6); Monocytes Percent Auto 8.5 % (2.6-8.5); Neutrophils Absolute Auto 2.8 K/mm3 (1.3-6.7); Neutrophils Percent Auto 80.4 % (45.5-73.1); Platelet Count Result 127 k/mm3 (150-375); Red Blood Count 3.72 M/mm3 (4.2-5.4); Red Cell Distribution Width 13.5 % (11.5-14.5); White Blood Count 3.5 K/mm3 (4.5-10.0)
[2020-11-28 06:39] LABS: Alanine Aminotransferase 32 U/L (4-35); Albumin Level 3.1 g/dL (3.5-5.1); Alkaline Phosphatase 166 U/L (38-126); Anion Gap 3 mmol/L (8-16); Aspartate Amino Transferase 44 U/L (14-36); Bilirubin,Total 0.7 mg/dL (0.2-1.3); Blood Urea Nitrogen 13 mg/dL (7-17); Calcium 8.8 mg/dL (8.4-10.2); Carbon Dioxide 37 mmol/L (22-30); Chloride 99 mmol/L (98-107); Estimated CRCL calculation 47 ml/min; Estimated Glomerular Filt Rate > 60; Glucose 123 mg/dL (65-110); Magnesium 1.8 mg/dL (1.6-2.3); Potassium 4.1 mmol/L (3.4-5.0); Sodium 139 mmol/L (137-145)
[2020-11-28 07:57] LABS: Thyroid Stimulating Hormone Reflex 0.786 uIU/mL (0.465-4.68)
--- NOTE | 2020-11-28 08:20 | ADMGEN ---
This patient, Jodee Monte, was admitted to [facility] Surg Room 307-02. Patient/family oriented to hospital policies and general routines including ID bracelet, bed and alarms, visiting hours, pain management, procedures, bathroom and other care routines, personal items, smoking policy, room service/diet, and visiting hours. Information on how to activate the Rapid Response Team has been discussed. Patient/Family are encouraged to report perceived risks to care and to ask questions if they do not understand what they are told or what they should do. TDialRNC
[2020-11-28 10:29] LABS: pH Pleural Fluid 7.449 (7.210-7.500)
[2020-11-28] MEDS: UMECLIDINIUM/VILANTEROL 62.5-25 MCG ELLIPTA 1 PUFF INHALATION (10:45)
--- NOTE | 2020-11-28 10:46 | PM.CNPUL ---
Assessment and Plan Assessment and plan (1) COPD (chronic obstructive pulmonary disease): Code(s): J44.9 - Chronic obstructive pulmonary disease, unspecified Status: Acute Assessment and Plan: Patient carries a diagnosis of COPD since 2004 and has apical predominant severe panlobular emphysema on her CT scan of the chest from 11/27/2020. I have no PFTs. Patient is chronically on 6 L nasal cannula and has had 1 exacerbation as an outpatient in the last year and no hospitalizations. Patient states she has had worsening shortness of breath and worsening hypoxia over the last 1 day without any cough, or change in her phlegm. At this point I will treat her for a COPD exacerbation as well as pneumonia. She has no wheezing today and I will decrease her Solu-Medrol to prednisone 50 mg p.o. q.day. I will continue her albuterol and ipratropium nebulizers at q.6 hours. I will continue ceftriaxone and azithromycin for community-acquired pneumonia. She has a large right pleural effusion and I agree with thoracentesis which will be sent for studies to assess transudate versus exudate and exclude empyema. Cytology will also be sent since she has a remote history of lung cancer 1987. Patient has evidence of hypercarbic respiratory failure with a ABG on 5 L nasal cannula with a pH of 7.43/56/60. her serum bicarbonate was 36 on 02/11/2020 and remains elevated at 35 on 11/27/2020. Etiology of this hypercarbic respiratory failure includes COPD, COPD exacerbation, right pleural effusion. Once patient is improved will repeat her arterial blood gas and if she remains hypercarbic will consider initiation of noninvasive ventilation at night at that time. Will follow with you. History of Present Illness History of Present Illness Consult date: 11/28/20 Requesting physician: Claudia Jones PA-C Reason for consult: COPD Chief complaint: Pneumonia, Pleural Effusion, Hypoxemia Narrative: This is a new pulmonary consult for COPD, pleural effusion and lung cancer. 80-year-old woman with a history of COPD, lung cancer status post right upper lobectomy in 1997 followed by radiation therapy, chronic hypoxemic respiratory failure on 6 L nasal cannula at home, severe kyphosis, hypothyroidism, primary biliary cirrhosis who presented to the emergency department on 11/27 with increasing shortness of breath and exertional hypoxemia at home. Patient states that on 11/26 she developed shortness of breath and worsening hypoxemia. She denied any cough, change in phlegm color or volume, hemoptysis, fever, chills or rigors. On 11/27 the patient stated that she walked across her independent living facility and her saturations went into the low 70s and she presented to the emergency department. In the emergency department she had a white blood cell count of 4.5, an ABG on 5 L nasal cannula with a pH of 7.43/56/60, a chest x-ray with moderate-sized right pleural effusion and small left pleural effusion. peripheral infiltrate in the left mid lung zone 12 mm nodule in the left base and severe apical predominant panlobular emphysema. Patient was admitted to the floor on 6 L nasal cannula oxygen and treated for a community-acquired pneumonia with ceftriaxone and azithromycin, a COPD exacerbation with Solu-Medrol and bronchodilators and scheduled for a right thoracentesis. Patient smoked cigarettes from [id number] at 1 and half packs per day for total of 67 pack years. Patient is not smoked since 1987. 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 At her baseline on a good day she can walk 1/2 a block. She has not been hospitalized for COPD exacerbation or pneumonia in the past. She was last given prednisone 4 months ago by her private big data software engineer at [facility] Dr. Samuels. in May of 2020 she increased her oxygen from 5 L to 6 L and and she wears this 24-7. S
[2020-11-28 11:02] LABS: Appearance Pleural Fluid Cloudy (Clear); Color Pleural Fluid Yellow (Colorless); Pleural fluid source Pleural fluid
[2020-11-28 11:03] LABS: Lymphocytes Pleural Fluid 89 %; Macrophages Pleural Fluid 6 %; Monocytes Pleural Fluid 3 %; Neutrophils Pleural Fluid 2 % (0-25)
[2020-11-28 12:09] LABS: Lactate Dehydrogenase 411 U/L (313-618)
[2020-11-28] MEDS: ALBUTEROL SULFATE NEB 2.5 MG/0.5 ML INH INHALATION ×2 (15:11→20:21)
[2020-11-28] MEDS: predniSONE 10 MG TABLET 50 MG PO (15:58)
--- NOTE | 2020-11-28 17:00 | PM.IMPN ---
Progress Note: A&P Assessment and Plan (1) Acute on chronic respiratory failure with hypercapnia: Code(s): J96.22 - Acute and chronic respiratory failure with hypercapnia Status: Acute Assessment and Plan: Chronic respiratory failure likely related to COPD. Patient is on 6 L supplemental O2 at home. Acutely worsened likely related to pleural effusion and CAP. Continue supplemental O2 with goal saturation 90% or above appreciate pulmonology consultation ABG reviewed. Plan for repeat ABG following improvement to assess need for noninvasive ventilation (2) Pleural effusion: Code(s): J90 - Pleural effusion, not elsewhere classified Status: Acute Assessment and Plan: Large right pleural effusion noted on imaging s/p thoracentesis performed this afternoon with 1 L yellow, cloudy pleural fluid removed Preliminary test with normal pH and elevated lymphocytes, additional studies pending, bacterial and fungal culture, AFB pending. Gram stain with no organisms seen (3) Community acquired pneumonia: Code(s): J18.9 - Pneumonia, unspecified organism Status: Acute Assessment and Plan: Left upper lobe peripheral airspace disease noted on CTA continue azithromycin and Rocephin supportive care to include incentive spirometry, expectorants, and bronchodilators will check Legionella and pneumococcal urinary antigens (4) COPD (chronic obstructive pulmonary disease): Code(s): J44.9 - Chronic obstructive pulmonary disease, unspecified Status: Acute Assessment and Plan: No wheezing on exam. Appreciate pulmonology consultation Continue steroids; decreased to Prednisone 50 daily Continue scheduled nebs (5) Adult hypothyroidism: Code(s): E03.9 - Hypothyroidism, unspecified Status: Acute Assessment and Plan: TSH is wnl. Continue levothyroxine (6) Primary biliary cirrhosis: Code(s): K74.3 - Primary biliary cirrhosis Status: Acute Assessment and Plan: Chronic with no acute issues Continue ursodiol Subjective Date/time seen: 11/28/20 17:00 Interval history: date of service: 11/28/2020 Jodee Monte is a 80-year-old female with history of hypothyroidism, COPD, and primary biliary cirrhosis who is seen in follow-up for acute on chronic respiratory failure with pleural effusion. She underwent thoracentesis today and her shortness of breath is improved. She is endorsing dyspnea with exertion. She denies chest pain. No wheezing. Very infrequent cough with no sputum production. She does have some back pain at this site of the thoracentesis. No nausea, vomiting, fever, or chills. No abdominal pain. She is tolerating her diet. Denies urinary symptoms. Review of Systems Review of Systems: All systems reviewed & are unremarkable except as noted in HPI and below Exam Narrative: Exam Narrative: Ms. Monte is a thin, frail 80-year-old female who is lying supine in bed. She appears comfortable and is in NARD. Neuro: awake, alert and oriented x4, speech clear, no focal neuro deficits noted HEENMT: normocephalic, atraumatic, EOMI, sclerae anicteric, moist oral mucosa Neck: supple, no lymphadenopathy Respiratory: diminished breath sounds bilaterally, nonlabored breathing Cardio: tachycardic, regular rhythm with S1-S2 Abdomen: nondistended, normoactive bowel sounds, soft, nontender to palpation Extremities: no edema, erythema, or tenderness to palpation, DP pulses 2+ bilaterally Skin: no rashes or lesions, warm and dry Psych: appropriate mood and affect, judgment and insight intact Objective Data Vital Signs Vital Signs: Vital Signs - 24 hr 11/27/20 17:01 11/27/20 17:15 11/27/20 17:54 Temperature Pulse Rate 105 H 107 H 108 H Respiratory Rate 25 H 26 H 21 H Blood Pressure 149/74 H Pulse Oximetry 94 94 92 11/27/20 18:00 11/27/20 18:01 11/27/20 18:15 T
[2020-11-28] MEDS: ursodioL 300 MG CAPSULE PO (21:11)
[2020-11-28] MEDS: guaiFENesin 12 HR 600 MG TABCR PO (21:11)
[2020-11-28] MEDS: ESCITALOPRAM OXALATE 10 MG TABLET BY MOUTH (21:11)
[2020-11-29] VITALS (13 sets, daily range): BP systolic 141–148; BP diastolic 76–80; PULSE 73–108; RESP 18–20; TEMP 36.1–36.6; O2SAT 95–100
[2020-11-29] MEDS: IPRATROPIUM BR 0.02% INH SOLN 0.5 MG/2.5 ML VIAL INHALATION ×4 (02:15→21:42)
[2020-11-29] MEDS: ALBUTEROL SULFATE NEB 2.5 MG/0.5 ML INH INHALATION ×4 (02:15→21:41)
[2020-11-29] MEDS: LEVOTHYROXINE SODIUM 75 MCG TABLET BY MOUTH (06:08)
[2020-11-29 06:55] LABS: Hematocrit 34.6 % (37.0-47.0); Hemoglobin 11.1 g/dL (12.0-15.0); Mean Corpuscular HGB Conc 32.1 g/dl (32-36); Mean Corpuscular Hemoglobin 30.1 pg (26-34); Mean Corpuscular Volume 93.8 fl (80-100); Mean Platelet Volume 9.4 fl (7.4-10.4); Platelet Count Result 140 k/mm3 (150-375); Red Blood Count 3.69 M/mm3 (4.2-5.4); Red Cell Distribution Width 13.6 % (11.5-14.5); White Blood Count 7.9 K/mm3 (4.5-10.0)
[2020-11-29 07:10] LABS: Anion Gap 3 mmol/L (8-16); Blood Urea Nitrogen 19 mg/dL (7-17); Calcium 8.4 mg/dL (8.4-10.2); Carbon Dioxide 36 mmol/L (22-30); Chloride 101 mmol/L (98-107); Estimated CRCL calculation 36 ml/min; Estimated Glomerular Filt Rate > 60; Glucose 126 mg/dL (65-110); Sodium 140 mmol/L (137-145)
--- NOTE | 2020-11-29 08:31 | PHAR ---
HOME MED VERIFIED = URSODIOL 250 MG TABS IN PRESCRIPTION BOTTLE LABELED ONLY WITH PATIENT NAME STICKER & HOME MED STICKER.
--- NOTE | 2020-11-29 09:02 | PM.PNPUL ---
Progress Note: A&P Assessment and Plan (1) COPD (chronic obstructive pulmonary disease): Code(s): J44.9 - Chronic obstructive pulmonary disease, unspecified Status: Acute Assessment and Plan: 11/28 Patient carries a diagnosis of COPD since 2004 and has apical predominant severe panlobular emphysema on her CT scan of the chest from 11/27/2020. I have no PFTs. Patient is chronically on 6 L nasal cannula and has had 1 exacerbation as an outpatient in the last year and no hospitalizations. Patient states she has had worsening shortness of breath and worsening hypoxia over the last 1 day without any cough, or change in her phlegm. At this point I will treat her for a COPD exacerbation as well as pneumonia. She has no wheezing today and I will decrease her Solu-Medrol to prednisone 50 mg p.o. q.day. I will continue her albuterol and ipratropium nebulizers at q.6 hours. I will continue ceftriaxone and azithromycin for community-acquired pneumonia. She has a large right pleural effusion and I agree with thoracentesis which will be sent for studies to assess transudate versus exudate and exclude empyema. Cytology will also be sent since she has a remote history of lung cancer 1987. Patient has evidence of hypercarbic respiratory failure with a ABG on 5 L nasal cannula with a pH of 7.43/56/60. her serum bicarbonate was 36 on 02/11/2020 and remains elevated at 35 on 11/27/2020. Etiology of this hypercarbic respiratory failure includes COPD, COPD exacerbation, right pleural effusion. Once patient is improved will repeat her arterial blood gas and if she remains hypercarbic will consider initiation of noninvasive ventilation at night at that time. 11/29 patient improved and back to baseline when sitting, will try to walk later today. On baseline oxygen of 6 L at rest with sats 96%. Continue prednisone 50 for total 5 days, place back on anoro ellipta today and nebulizers, continue azithromycina nd ceftriaxone for possible pneumonia. Now that she is improved I will repeat ABG to assess for hypercarbia. If she remains hypercarbic with PaCO2 > 52 she has chronic hypercarbic respiratory failure from her COPD and would benefit from BiPAP or noninvasive ventilation to prevent further clinical deterioration and hospitalization. Repeat CXR without rapid reaccumulation of right effusion. Right pleural effusion with pH 7.45, Gram stain with no organisms and white blood cells, cell count differential is 2% neutrophils, 89% lymphocytes, macrophages 6%, monocytes 3%, other pleural fluid studies are pending. Possible DC home tomorrow. Will follow with you. Subjective Date/time seen: 11/29/20 09:02 Interval history: 11/28 Narrative: This is a new pulmonary consult for COPD, pleural effusion and lung cancer. 80-year-old woman with a history of COPD (outpatient office visit on 09/07/2014 states on 08/10/2014 FVC 1.35 L = 52%, FEV1 0.89 L = 49%), nonsmall cell lung cancer status post right upper lobectomy in 1997 followed by radiation therapy, chronic hypoxemic respiratory failure on 6 L nasal cannula at home, severe kyphosis, hypothyroidism, primary biliary cirrhosis who presented to the emergency department on 11/27 with increasing shortness of breath and exertional hypoxemia at home. Patient states that on 11/26 she developed shortness of breath and worsening hypoxemia. She denied any cough, change in phlegm color or volume, hemoptysis, fever, chills or rigors. On 11/27 the patient stated that she walked across her independent living facility and her saturations went into the low 70s and she presented to the emergency department. In the emergency department she had a white blood cell count of 4.5, an ABG on 5 L nasal cannula with a pH of 7.43/56/60, a chest x-ray with moderate-sized right pleural effusion and small left pleural effusion. peripheral infiltrate in the left mid lung zone 12 mm nodule in the
[2020-11-29] MEDS: guaiFENesin 12 HR 600 MG TABCR PO ×2 (09:03→20:16)
[2020-11-29] MEDS: predniSONE 10 MG TABLET 50 MG PO (09:03)
[2020-11-29] MEDS: FAMOTIDINE 20 MG/2 ML VIAL IV PUSH ×2 (09:04→20:14)
[2020-11-29] MEDS: UMECLIDINIUM/VILANTEROL 62.5-25 MCG ELLIPTA 1 PUFF INHALATION ×2 (09:05→09:39)
[2020-11-29] MEDS: ACETAMINOPHEN 325 MG TABLET 650 MG PO ×2 (09:12→20:29)
[2020-11-29 11:25] LABS: Alveolar/Arterial O2 Gradient 137.3 mmHg; Base Excess ABG 6.9 mEq/l (+/-2.0); Fractional Inspired Oxygen 36 %; HCO3 ABG 32.4 mEq/l (22.0-26.0); Oxygen Content ABG 15.5 %vol (16.0-22.0); Oxygen Saturation ABG 91.6 % (95.0-100.0); Oxyhemoglobin 90.5 % THb (90.0-100.0); PCO2 ABG 50.3 mmHg (35.0-45.0); PO2 FiO2 Ratio Arterial Blood 1.69 %; Total Hemoglobin 12.2 g/dL (12.0-18.0); pH ABG 7.427 (7.350-7.450)
[2020-11-29 11:28] LABS: Device NASAL CANNULA; Site Drawn RIGHT BRACHIAL
[2020-11-29] MEDS: ursodioL 300 MG CAPSULE PO ×2 (12:45→20:16)
--- NOTE | 2020-11-29 16:51 | PM.IMPN ---
Progress Note: A&P Assessment and Plan (1) Acute on chronic respiratory failure with hypercapnia: Code(s): J96.22 - Acute and chronic respiratory failure with hypercapnia Status: Acute Assessment and Plan: Chronic respiratory failure likely related to COPD. Patient is reportedly on 6 L supplemental O2 at home. Acutely worsened likely related to pleural effusion and CAP. Continue supplemental O2 with goal saturation 90% or above Appreciate pulmonology consultation ABG reviewed and has improved from initial. (2) Pleural effusion: Code(s): J90 - Pleural effusion, not elsewhere classified Status: Acute Assessment and Plan: Large right pleural effusion noted on imaging s/p thoracentesis performed 11/28with 1 L yellow, cloudy pleural fluid removed Preliminary test with normal pH and elevated lymphocytes, additional studies pending, bacterial and fungal culture, AFB pending. Gram stain with no organisms seen (3) Community acquired pneumonia: Code(s): J18.9 - Pneumonia, unspecified organism Status: Acute Assessment and Plan: Left upper lobe peripheral airspace disease noted on CTA Unchanged on repeat CXR today Continue azithromycin and Rocephin Supportive care to include incentive spirometry, expectorants, and bronchodilators Legionella and pneumococcal urinary antigens pending (4) COPD (chronic obstructive pulmonary disease): Code(s): J44.9 - Chronic obstructive pulmonary disease, unspecified Status: Acute Assessment and Plan: No wheezing on exam. Appreciate pulmonology consultation Continue steroids; decreased to Prednisone 50 daily Continue scheduled nebs (5) Adult hypothyroidism: Code(s): E03.9 - Hypothyroidism, unspecified Status: Acute Assessment and Plan: TSH is wnl. Continue levothyroxine (6) Primary biliary cirrhosis: Code(s): K74.3 - Primary biliary cirrhosis Status: Acute Assessment and Plan: Chronic with no acute issues Continue ursodiol (7) Positive blood culture: Code(s): R78.81 - Bacteremia Status: Acute Assessment and Plan: Blood culture preliminary report of gram positive cocci in clusters in 1/2 bottles Possibly a contaminant. remains afebrile without leukocytosis However, given her respiratory illness, will add IV Vancomycin for coverage while awaiting results Subjective Date/time seen: 11/29/20 16:51 Interval history: Date of service: 11/29/2020 Jodee Monte is a 80-year-old female with history of hypothyroidism, COPD, and primary biliary cirrhosis who is seen in follow-up for acute on chronic respiratory failure with pleural effusion. she is doing okay today. She does endorse dyspnea on exertion and cough productive of clear sputum. She has 4 appetite. She states that she often has GERD symptoms, and therefore has not been eating as much. Denies nausea, vomiting, fever, or chills. She had a regular bowel movement today. She denies any urinary symptoms. She is having a slight headache that has improved with Tylenol. She denies dizziness or lightheadedness. No abdominal pain. No chest pain or palpitations. Review of Systems Review of Systems: All systems reviewed & are unremarkable except as noted in HPI and below Exam Narrative: Exam Narrative: Ms. Monte is a thin, frail 80-year-old female who is lying supine in bed. She appears comfortable and is in NARD. Neuro: awake, alert and oriented x4, speech clear, no focal neuro deficits noted HEENMT: normocephalic, atraumatic, EOMI, sclerae anicteric, moist oral mucosa Back: Significant kyphosis Respiratory: diminished breath sounds bilaterally, nonlabored breathing Cardio: regular rate, regular rhythm with S1-S2 Abdomen: nondistended, normoactive bowel sounds, soft, nontender to palpation Extremities: no edema, erythema, or tenderness to
[2020-11-29] MEDS: ESCITALOPRAM OXALATE 10 MG TABLET BY MOUTH (20:15)
[2020-11-30] VITALS (18 sets, daily range): BP systolic 142–157; BP diastolic 72–90; PULSE 90–105; RESP 16–22; TEMP 36.9–37.1; O2SAT 86–98
[2020-11-30] MEDS: ACETAMINOPHEN 325 MG TABLET 650 MG PO ×2 (02:30→08:47)
[2020-11-30] MEDS: LEVOTHYROXINE SODIUM 75 MCG TABLET BY MOUTH (05:31)
[2020-11-30 06:43] LABS: Hematocrit 36.2 % (37.0-47.0); Hemoglobin 11.7 g/dL (12.0-15.0); Mean Corpuscular HGB Conc 32.3 g/dl (32-36); Mean Corpuscular Hemoglobin 30.5 pg (26-34); Mean Corpuscular Volume 94.5 fl (80-100); Mean Platelet Volume 9.4 fl (7.4-10.4); Platelet Count Result 141 k/mm3 (150-375); Red Blood Count 3.83 M/mm3 (4.2-5.4); Red Cell Distribution Width 13.7 % (11.5-14.5); White Blood Count 6.2 K/mm3 (4.5-10.0)
[2020-11-30 06:52] LABS: Anion Gap 3 mmol/L (8-16); Blood Urea Nitrogen 19 mg/dL (7-17); Calcium 8.2 mg/dL (8.4-10.2); Carbon Dioxide 36 mmol/L (22-30); Chloride 101 mmol/L (98-107); Estimated CRCL calculation 47 ml/min; Estimated Glomerular Filt Rate > 60; Glucose 83 mg/dL (65-110); Potassium 3.9 mmol/L (3.4-5.0); Sodium 140 mmol/L (137-145)
[2020-11-30] MEDS: predniSONE 10 MG TABLET 50 MG PO (08:49)
[2020-11-30] MEDS: FAMOTIDINE 20 MG/2 ML VIAL IV PUSH (08:50)
[2020-11-30] MEDS: guaiFENesin 12 HR 600 MG TABCR PO ×2 (08:50→22:46)
--- NOTE | 2020-11-30 10:00 | PM.PNPUL ---
Progress Note: A&P Assessment and Plan (1) COPD (chronic obstructive pulmonary disease): Code(s): J44.9 - Chronic obstructive pulmonary disease, unspecified Status: Acute Assessment and Plan: 11/28 Patient carries a diagnosis of COPD since 2004 and has apical predominant severe panlobular emphysema on her CT scan of the chest from 11/27/2020. I have no PFTs. Patient is chronically on 6 L nasal cannula and has had 1 exacerbation as an outpatient in the last year and no hospitalizations. Patient states she has had worsening shortness of breath and worsening hypoxia over the last 1 day without any cough, or change in her phlegm. At this point I will treat her for a COPD exacerbation as well as pneumonia. She has no wheezing today and I will decrease her Solu-Medrol to prednisone 50 mg p.o. q.day. I will continue her albuterol and ipratropium nebulizers at q.6 hours. I will continue ceftriaxone and azithromycin for community-acquired pneumonia. She has a large right pleural effusion and I agree with thoracentesis which will be sent for studies to assess transudate versus exudate and exclude empyema. Cytology will also be sent since she has a remote history of lung cancer 1987. Patient has evidence of hypercarbic respiratory failure with a ABG on 5 L nasal cannula with a pH of 7.43/56/60. her serum bicarbonate was 36 on 02/11/2020 and remains elevated at 35 on 11/27/2020. Etiology of this hypercarbic respiratory failure includes COPD, COPD exacerbation, right pleural effusion. Once patient is improved will repeat her arterial blood gas and if she remains hypercarbic will consider initiation of noninvasive ventilation at night at that time. 11/29 patient improved and back to baseline when sitting, will try to walk later today. On baseline oxygen of 6 L at rest with sats 96%. Continue prednisone 50 for total 5 days, place back on anoro ellipta today and nebulizers, continue azithromycina nd ceftriaxone for possible pneumonia. Now that she is improved I will repeat ABG to assess for hypercarbia. If she remains hypercarbic with PaCO2 > 52 she has chronic hypercarbic respiratory failure from her COPD and would benefit from BiPAP or noninvasive ventilation to prevent further clinical deterioration and hospitalization. Repeat CXR without rapid reaccumulation of right effusion. Right pleural effusion with pH 7.45, Gram stain with no organisms and white blood cells, cell count differential is 2% neutrophils, 89% lymphocytes, macrophages 6%, monocytes 3%, other pleural fluid studies are pending. 11/30 11/30 Patient states that she feels like she is breathing normally when she sits. Patient still has not been out of bed. Patient is confused and anxious at times and she relates this to her being on the prednisone As this is happened previously on steroids. Last dose steroids given today. Pleural cytology negative for malignacy. Saturation on 4 L NC is 98%. Blood gas On 4 L nasal cannula was 7.43/50/61 so patient does not have cracked chronic hypercarbic respiratory failure requiring noninvasive ventilation at this time. I will order home O2 assessment today and an overnight oximetry on 6 L nasal cannula to assess oxygenation. Started on vancomycin for gram-positive cocci in blood cultures. Day 5 azithro on 12/01. Possible DC home tomorrow from pulmonary perspective. Levofloxacin 750 mg p.o. q.day X 10 days Anoro Ellipta 62.5-25 at 1 puff q.day Rescue albuterol at 2 puffs q.4 hours p.r.n. shortness of breath or wheezing Oxygen at rest, with ambulation, and when sleeping per home O2 assessment and overnight oximetry ( I have ordered these tests for today). Follow-up with prior chrome polisher (Dr. Marion) or with us in Pulmonary Clinic in about 4 weeks. Patient will need follow-up CT scan as an outpatient at about 6-8 weeks to assess her pleural based left infiltrate and nodules an
--- NOTE | 2020-11-30 10:38 | PCNFU ---
Nutrition Follow-Up Complete: Increased energy needs as related to COPD as evidenced by BMI: 18.3 Goal: Meet estimated nutritional needs Progressing towards goal. We will continue current goal. Pt current nutrition is Regular with Ensure compact BID. Last recorded weight is 45.5 kg, no new weight reported. Bowel Motility: +BM reported 11/29 Labs Reviewed:Cr 0.6,BUN 19,Hct 36.2,Hgb 11.7 Meds Noted:Rocephin, Lexapro, Pepcid, Mucinex,Prednisone, Synthroid. Additional Notes: Patient seen today for nutrition follow up. Patient currently on a regular diet with ensure compact BID. She did request chocolate for a flavor preference. Patient eating about 75% of meals. Thoracentesis performed on 11/28 with 1 L removed. Agree with diet orders. Will monitor every 5 days.
[2020-11-30] MEDS: LORazepam (*CRX) 0.5 MG TABLET PO (13:41)
--- NOTE | 2020-11-30 13:57 | HOMEO2EVAL ---
Evaluation was performed at [facility] Home Oxygen Evaluation RC: Home Oxygen (O2) Evaluation Start: 11/30/20 10:08 Freq: ONCE Status: Active Protocol: RPE Activity Type Activity Date Activity User E-Sign Co-Sign Detail Recorded Client Recorded Date Recorded By Document 11/30/20 12:20 ALEXIS [email or web address] 11/30/20 13:57 ALEXIS Document 11/30/20 12:21 ALEXIS [email or web address] 11/30/20 13:57 ALEXIS Document 11/30/20 12:22 ALEXIS [email or web address] 11/30/20 13:57 ALEXIS Document 11/30/20 12:23 ALEXIS [email or web address] 11/30/20 13:57 ALEXIS Document 11/30/20 12:24 ALEXIS [email or web address] 11/30/20 13:57 ALEXIS Document 11/30/20 12:25 ALEXIS [email or web address] 11/30/20 13:57 ALEXIS Document 11/30/20 12:26 ALEXIS [email or web address] 11/30/20 13:57 ALEXIS Document 11/30/20 12:27 ALEXIS [email or web address] 11/30/20 13:57 ALEXIS Document 11/30/20 13:56 ALEXIS [email or web address] 11/30/20 13:57 ALEXIS 11/30/20 11/30/20 11/30/20 12:20 12:21 12:22 Home O2 Evaluation Test Phase Resting Resting Resting Oxygen Delivery Room Air Nasal Cannula Nasal Cannula Oxygen Flow Rate (L/min) 1 2 Pulse Oximetry (90-100 %) 87 L 87 L 87 L Home Oxygen Evaluation Comments 11/30/20 11/30/20 11/30/20 12:23 12:24 12:25 Home O2 Evaluation Test Phase Resting Resting Exercise Oxygen Delivery Nasal Cannula Nasal Cannula Nasal Cannula Oxygen Flow Rate (L/min) 3 4 4 Pulse Oximetry (90-100 %) 87 L 93 86 L Home Oxygen Evaluation Comments 11/30/20 11/30/20 11/30/20 12:26 12:27 13:56 Home O2 Evaluation Test Phase Exercise Exercise Resting Oxygen Delivery Nasal Cannula Nasal Cannula Nasal Cannula Oxygen Flow Rate (L/min) 5 6 4 Pulse Oximetry (90-100 %) 87 L 90 93 Home Oxygen Evaluation Comments UP TO SIDE OF BED, STOOD UP, BACK INTO BED. PT REQUIRES 4 L REST AND 6 L EXERTION
--- NOTE | 2020-11-30 13:58 | PCRCNOTE ---
PT REQUIRES 4 L AT REST AND 6 L WITH EXERTION. PT AWARE OF HER O2 NEEDS, STATED SHE CANT TURN IT UP AND DOWN AND UP AND DOWN, TOO DIFFICULT TO DO - SO SHE LEAVES IT ON 6L. PT HAS ALL HOME O2 SUPPLIES ALREADY, NO ADDITIONAL NEEDS. WILL FAX UPDATED EVAL TO DME.
[2020-11-30] MEDS: ALBUTEROL SULFATE NEB 2.5 MG/0.5 ML INH INHALATION ×2 (14:02→14:05)
[2020-11-30] MEDS: IPRATROPIUM BR 0.02% INH SOLN 0.5 MG/2.5 ML VIAL INHALATION (14:03)
--- NOTE | 2020-11-30 14:03 | PCRCNOTE ---
[facility]
--- NOTE | 2020-11-30 14:35 | PM.IMPN ---
Progress Note: A&P Assessment and Plan (1) Acute on chronic respiratory failure with hypercapnia: Code(s): J96.22 - Acute and chronic respiratory failure with hypercapnia Status: Acute Assessment and Plan: Chronic respiratory failure likely related to COPD. Patient is reportedly on 6 L supplemental O2 at home. Acutely worsened likely related to pleural effusion and CAP. Continue supplemental O2 with goal saturation 90% or above will need home O2 eval prior to discharge Appreciate pulmonology consultation ABG reviewed and has improved from initial. (2) Pleural effusion: Code(s): J90 - Pleural effusion, not elsewhere classified Status: Acute Assessment and Plan: Large right pleural effusion noted on imaging s/p thoracentesis performed 11/28with 1 L yellow, cloudy pleural fluid removed Preliminary test with normal pH and elevated lymphocytes, additional studies pending, bacterial and fungal culture, AFB pending. Gram stain with no organisms seen. cytology negative for malignancy. (3) Community acquired pneumonia: Code(s): J18.9 - Pneumonia, unspecified organism Status: Acute Assessment and Plan: Left upper lobe peripheral airspace disease noted on CTA Continue azithromycin and Rocephin. Will discontinue azithromycin on 12/01 Supportive care to include incentive spirometry, expectorants, and bronchodilators Legionella and pneumococcal urinary antigens pending (4) COPD (chronic obstructive pulmonary disease): Code(s): J44.9 - Chronic obstructive pulmonary disease, unspecified Status: Acute Assessment and Plan: No wheezing on exam. Appreciate pulmonology consultation Continue prednisone 50 daily, will plan to discontinue tomorrow Continue scheduled nebs (5) Adult hypothyroidism: Code(s): E03.9 - Hypothyroidism, unspecified Status: Acute Assessment and Plan: TSH is wnl. Continue levothyroxine (6) Primary biliary cirrhosis: Code(s): K74.3 - Primary biliary cirrhosis Status: Acute Assessment and Plan: Chronic with no acute issues Continue ursodiol (7) Positive blood culture: Code(s): R78.81 - Bacteremia Status: Acute Assessment and Plan: Blood culture preliminary report of gram positive cocci in clusters in 1/2 bottles Possibly a contaminant. remains afebrile without leukocytosis However, given her respiratory illness, will add IV Vancomycin for coverage while awaiting results Subjective Date/time seen: 11/30/20 14:35 Interval history: Date of service: 11/30/2020 Jodee Monte is a 80-year-old female with history of hypothyroidism, COPD, and primary biliary cirrhosis who is seen in follow-up for acute on chronic respiratory failure with pleural effusion. she is feeling anxious today. Her breathing is comfortable at rest but when she gets up she feels a bit more short of breath. She feels unsteady when she is up and walking. She denies cough. She is having trouble sleeping. She also complains that she is urinating more frequently. Denies abdominal pain. Appetite is good. No nausea or vomiting, fever, chills, dizziness, lightheadedness, headaches, body aches. No chest pain or palpitations. Review of Systems Review of Systems: All systems reviewed & are unremarkable except as noted in HPI and below Exam Narrative: Exam Narrative: Ms. Monte is a thin, frail 80-year-old female who is lying supine in bed. She appears comfortable and is in NARD. Neuro: awake, alert and oriented x4, speech clear, no focal neuro deficits noted HEENMT: normocephalic, atraumatic, EOMI, sclerae anicteric, moist oral mucosa Back: Significant kyphosis Respiratory: diminished breath sounds bilaterally, nonlabored breathing Cardio: regular rate, regular rhythm with S1-S2 Abdomen: nondistended, normoactive bowel sounds, soft, nontender
--- NOTE | 2020-11-30 15:33 | PC.NURSE ---
All pt care, assessments and medications done by Lalita Dotson RNLP with Sandro Nicholson RN precepting.
[2020-11-30] MEDS: ESCITALOPRAM OXALATE 10 MG TABLET BY MOUTH (22:46)
[2020-11-30] MEDS: FAMOTIDINE 20 MG TABLET PO (22:46)
--- NOTE | 2020-11-30 23:40 | PCRCNOTE ---
Window of time for administration has passed. See next scheduled administration.
[2020-12-01] VITALS (8 sets, daily range): BP systolic 120–145; BP diastolic 68–71; PULSE 91–108; RESP 18–24; TEMP 36.5–36.9; O2SAT 90–100
[2020-12-01] MEDS: LEVOTHYROXINE SODIUM 75 MCG TABLET BY MOUTH (06:04)
[2020-12-01 06:57] LABS: Hematocrit 37.9 % (37.0-47.0); Hemoglobin 11.9 g/dL (12.0-15.0)
--- NOTE | 2020-12-01 08:42 | PM.PNPUL ---
Progress Note: A&P Assessment and Plan (1) COPD (chronic obstructive pulmonary disease): Code(s): J44.9 - Chronic obstructive pulmonary disease, unspecified Status: Acute Assessment and Plan: 11/28 Patient carries a diagnosis of COPD since 2004 and has apical predominant severe panlobular emphysema on her CT scan of the chest from 11/27/2020. I have no PFTs. Patient is chronically on 6 L nasal cannula and has had 1 exacerbation as an outpatient in the last year and no hospitalizations. Patient states she has had worsening shortness of breath and worsening hypoxia over the last 1 day without any cough, or change in her phlegm. At this point I will treat her for a COPD exacerbation as well as pneumonia. She has no wheezing today and I will decrease her Solu-Medrol to prednisone 50 mg p.o. q.day. I will continue her albuterol and ipratropium nebulizers at q.6 hours. I will continue ceftriaxone and azithromycin for community-acquired pneumonia. She has a large right pleural effusion and I agree with thoracentesis which will be sent for studies to assess transudate versus exudate and exclude empyema. Cytology will also be sent since she has a remote history of lung cancer 1987. Patient has evidence of hypercarbic respiratory failure with a ABG on 5 L nasal cannula with a pH of 7.43/56/60. her serum bicarbonate was 36 on 02/11/2020 and remains elevated at 35 on 11/27/2020. Etiology of this hypercarbic respiratory failure includes COPD, COPD exacerbation, right pleural effusion. Once patient is improved will repeat her arterial blood gas and if she remains hypercarbic will consider initiation of noninvasive ventilation at night at that time. 11/29 patient improved and back to baseline when sitting, will try to walk later today. On baseline oxygen of 6 L at rest with sats 96%. Continue prednisone 50 for total 5 days, place back on anoro ellipta today and nebulizers, continue azithromycina nd ceftriaxone for possible pneumonia. Now that she is improved I will repeat ABG to assess for hypercarbia. If she remains hypercarbic with PaCO2 > 52 she has chronic hypercarbic respiratory failure from her COPD and would benefit from BiPAP or noninvasive ventilation to prevent further clinical deterioration and hospitalization. Repeat CXR without rapid reaccumulation of right effusion. Right pleural effusion with pH 7.45, Gram stain with no organisms and white blood cells, cell count differential is 2% neutrophils, 89% lymphocytes, macrophages 6%, monocytes 3%, other pleural fluid studies are pending. 11/30 11/30 Patient states that she feels like she is breathing normally when she sits. Patient still has not been out of bed. Patient is confused and anxious at times and she relates this to her being on the prednisone As this is happened previously on steroids. Last dose steroids given today. Pleural cytology negative for malignacy. Saturation on 4 L NC is 98%. Blood gas On 4 L nasal cannula was 7.43/50/61 so patient does not have cracked chronic hypercarbic respiratory failure requiring noninvasive ventilation at this time. I will order home O2 assessment today and an overnight oximetry on 6 L nasal cannula to assess oxygenation. Started on vancomycin for gram-positive cocci in blood cultures. Day 5 azithro on 12/01. 12/01 Patient states she is breathing back at her baseline and she has been ambulating in her room. Patient had a home O2 assessment and requires 4 L at rest and 6 with ambulation. Patient had an overnight oximetry on 6 L nasal cannula with an average saturation of 98%. Lowest saturation 94% time with saturation less than or equal to 88% was 0 minutes. She tells me she is ready to go home today.Blood culture with 1/2 aerococcus likely contaminant. DC home today from pulmonary perspective. Levofloxacin 750 mg p.o. q.day X 10 days (total 14 days antibiotics) Brian Stevens
[2020-12-01] MEDS: FAMOTIDINE 20 MG TABLET PO (10:19)
[2020-12-01] MEDS: guaiFENesin 12 HR 600 MG TABCR PO (10:19)
[2020-12-01] MEDS: UMECLIDINIUM/VILANTEROL 62.5-25 MCG ELLIPTA 1 PUFF INHALATION (10:20)
--- NOTE | 2020-12-01 10:45 | PCRCNOTE ---
Window of time for administration has passed. See next scheduled administration.
--- NOTE | 2020-12-01 10:57 | PCRCNOTE ---
Addendum entered by Nenita Jacobson, [employer]LECT[employer]IC 12/01/20 11:00: 12/01 neb treatment held due to apnea link study Original Note: 11/30 and 12/01 0200 neb treatment not given. Window of time for administration has passed. See next scheduled administration.
[2020-12-01] MEDS: ALBUTEROL SULFATE NEB 2.5 MG/0.5 ML INH INHALATION (11:26)
[2020-12-01] MEDS: IPRATROPIUM BR 0.02% INH SOLN 0.5 MG/2.5 ML VIAL INHALATION (11:26)
--- NOTE | 2020-12-01 13:06 | PCRCNOTE ---
REPEAT HOME O2 EVAL DONE, PT DID NOT DESAT WITH AMBULATION. PT STAYED AT 90% ON 6L. WALKED TO DOOR AND BACK TO BED WITH WHEELED WALKER AND DEEP BREATHING. PT STATED AGAIN THAT SHE WILL NOT TITRATE BETWEEN 4 L AND 6L. SHE WILL LEAVE IT ON 6L CONTINUOUS.
--- NOTE | 2020-12-01 18:02 | P.DS_ITS ---
DS: Admitting Diagnosis Admitting Diagnosis acute on chronic respiratory failure DS: Discharge Diagnosis Discharge Diagnosis (1) Acute on chronic respiratory failure with hypercapnia: Code(s): J96.22 - Acute and chronic respiratory failure with hypercapnia Status: Acute Assessment and Plan: Chronic respiratory failure related to COPD. Acutely worsened likely related to pleural effusion and CAP. * ABG was monitored and she did have improvement in hypercapnia * home O2 eval performed. Continue with 6 L of oxygen with activity and with sleep. 4 L at rest. * She was seen in consultation by pulmonology and will need outpatient follow- up. * She will need a repeat CT of the chest in 8 weeks. (2) Pleural effusion: Code(s): J90 - Pleural effusion, not elsewhere classified Status: Acute Assessment and Plan: Large right pleural effusion noted on imaging * Underwent thoracentesis performed 11/28 with 1 L yellow, cloudy pleural fluid removed * Preliminary test with normal pH and elevated lymphocytes, additional studies pending, bacterial and fungal culture, AFB pending. Gram stain with no organisms seen. cytology negative for malignancy. * follow-up with pulmonology for results * repeat CT as noted above to ensure not reaccumulating fluid (3) Community acquired pneumonia: Code(s): J18.9 - Pneumonia, unspecified organism Status: Acute Assessment and Plan: Left upper lobe peripheral airspace disease noted on CTA * completed 5 days of IV azithromycin and Rocephin * will continue p.o. Augmentin to complete a 14 day course of antibiotics * Supportive care provided including incentive spirometry, expectorants, and bronchodilators * Legionella and pneumococcal urinary antigens pending. will await results (4) COPD (chronic obstructive pulmonary disease): Code(s): J44.9 - Chronic obstructive pulmonary disease, unspecified Status: Acute Assessment and Plan: No wheezing on exam. * Appreciate pulmonology consultation * Received 4 days of steroids. She did have adverse reaction was significant anxiety, therefore steroids were discontinued * Continue scheduled nebs (5) Adult hypothyroidism: Code(s): E03.9 - Hypothyroidism, unspecified Status: Acute Assessment and Plan: TSH is wnl. * Continue levothyroxine (6) Primary biliary cirrhosis: Code(s): K74.3 - Primary biliary cirrhosis Status: Acute Assessment and Plan: Chronic with no acute issues * Continue ursodiol (7) Positive blood culture: Code(s): R78.81 - Bacteremia Status: Acute Assessment and Plan: Blood culture preliminary report of gram positive cocci in clusters in 1/2 bottles * spoke with [facility] outreach representative who verbally reported aerococcus growth; susceptibility testing not routinely performed * these results will be faxed to our lab and will be scanned into the chart * this is most likely a contaminant. No signs or symptoms to suggest acute infection. afebrile, no leukocytosis * IV vancomycin was initiated for empiric coverage, however discontinued after report received suggesting contamination. (8) Abnormal chest CT: Code(s): R93.89 - Abnormal findings on diagnostic imaging of other specified body structures Status: Acute Assessment and Plan: CTA with left upper lobe peripheral air space disease measuring 3 cm x 1 cm with 2 left suprahil
--- NOTE | 2020-12-01 18:02 | PM.DS ---
DS: Admitting Diagnosis Admitting Diagnosis acute on chronic respiratory failure DS: Discharge Diagnosis Discharge Diagnosis (1) Acute on chronic respiratory failure with hypercapnia: Code(s): J96.22 - Acute and chronic respiratory failure with hypercapnia Status: Acute Assessment and Plan: Chronic respiratory failure related to COPD. Acutely worsened likely related to pleural effusion and CAP. ABG was monitored and she did have improvement in hypercapnia home O2 eval performed. Continue with 6 L of oxygen with activity and with sleep. 4 L at rest. She was seen in consultation by pulmonology and will need outpatient follow-up. She will need a repeat CT of the chest in 8 weeks. (2) Pleural effusion: Code(s): J90 - Pleural effusion, not elsewhere classified Status: Acute Assessment and Plan: Large right pleural effusion noted on imaging Underwent thoracentesis performed 11/28 with 1 L yellow, cloudy pleural fluid removed Preliminary test with normal pH and elevated lymphocytes, additional studies pending, bacterial and fungal culture, AFB pending. Gram stain with no organisms seen. cytology negative for malignancy. follow-up with pulmonology for results repeat CT as noted above to ensure not reaccumulating fluid (3) Community acquired pneumonia: Code(s): J18.9 - Pneumonia, unspecified organism Status: Acute Assessment and Plan: Left upper lobe peripheral airspace disease noted on CTA completed 5 days of IV azithromycin and Rocephin will continue p.o. Augmentin to complete a 14 day course of antibiotics Supportive care provided including incentive spirometry, expectorants, and bronchodilators Legionella and pneumococcal urinary antigens pending. will await results (4) COPD (chronic obstructive pulmonary disease): Code(s): J44.9 - Chronic obstructive pulmonary disease, unspecified Status: Acute Assessment and Plan: No wheezing on exam. Appreciate pulmonology consultation Received 4 days of steroids. She did have adverse reaction was significant anxiety, therefore steroids were discontinued Continue scheduled nebs (5) Adult hypothyroidism: Code(s): E03.9 - Hypothyroidism, unspecified Status: Acute Assessment and Plan: TSH is wnl. Continue levothyroxine (6) Primary biliary cirrhosis: Code(s): K74.3 - Primary biliary cirrhosis Status: Acute Assessment and Plan: Chronic with no acute issues Continue ursodiol (7) Positive blood culture: Code(s): R78.81 - Bacteremia Status: Acute Assessment and Plan: Blood culture preliminary report of gram positive cocci in clusters in 1/2 bottles spoke with [facility] sales representative education courses who verbally reported aerococcus growth; susceptibility testing not routinely performed these results will be faxed to our lab and will be scanned into the chart this is most likely a contaminant. No signs or symptoms to suggest acute infection. afebrile, no leukocytosis IV vancomycin was initiated for empiric coverage, however discontinued after report received suggesting contamination. (8) Abnormal chest CT: Code(s): R93.89 - Abnormal findings on diagnostic imaging of other specified body structures Status: Acute Assessment and Plan: CTA with left upper lobe peripheral air space disease measuring 3 cm x 1 cm with 2 left suprahilar nodules concerning for infection vs cancer history of [id number] lung cancer pulmonology follow-up. Repeat chest CT in 8 weeks DS: Summary Hospital Course Hospital Course: date of admission: 11/27/2020 date of discharge: 12/01/2020 Jodee Monte is a 80-year-old female with history of non-small cell lung cancer s/p right upper lobectomy, chronic respiratory failure on 6 L supplemental O2 at home,hypothyroidism, COPD, and primary bili
[2020-12-02 18:38] LABS: Pneumococcal Antigen Urine Not Detected (Not Detected)
[2020-12-03 06:05] LABS: Legionella pneumophila Ag Ur Not Detected (Not Detected)
[2020-12-03 22:28] LABS: Glucose Pleural Fluid 155 mg/dL; LDH Pleural Fluid 72 U/L; Total Protein Pleural Fluid <3.0 g/dL
[2020-12-04 23:19] LABS: Albumin Pleural Fluid 1.6 g/dL
== END 2020-12-01 16:35 | DRG 194 ==
LOC: ANHED 18:04 → ANH3MEDSUR 20:42
PROVIDERS: Emergency Medicine; Emergency Medicine Emergency Medical Services; Internal Medicine Pulmonary Disease; Nurse Practitioner; Physician Assistant; Admitting Provider Internal Medicine; Emergency Provider Emergency Medicine; PCP Internal Medicine; Visit Provider Internal Medicine
DX: J18.9 Pneumonia, unspecified organism (principal); J90 Pleural effusion, not elsewhere classified; J44.0 Chronic obstructive pulmonary disease with (acute) lower respiratory infection; J44.1 Chronic obstructive pulmonary disease with (acute) exacerbation; J96.12 Chronic respiratory failure with hypercapnia; J96.11 Chronic respiratory failure with hypoxia; E03.9 Hypothyroidism, unspecified; K74.3 Primary biliary cirrhosis; F32.9 Major depressive disorder, single episode, unspecified; M81.0 Age-related osteoporosis without current pathological fracture; Z85.118 Personal history of other malignant neoplasm of bronchus and lung; Z87.891 Personal history of nicotine dependence; Z90.710 Acquired absence of both cervix and uterus; Z99.81 Dependence on supplemental oxygen
CPT/HCPCS: 32555; 36415; 36600; 51701; 71045; 71046; 71275; 80048; 80053; 81001; 82042; 82375; 82805; 82945; 83050; 83605; 83615; 83735; 83986; 84157; 84311; 84443; 84478; 85014; 85018; 85025; 85027; 85610; 85730; 86140; 87015; 87040; 87070; 87075; 87077; 87102; 87116; 87205; 87206; 87449; 87899; 88104; 88108; 88184; 88305; 89051; 93005; 94618; 94640; 94762; 96361; 96365; 96366; 96367; 96375; 96376; 97116; 97161; 97165; 97530; 99285; A9270; G0378; J0456; J0696; J2930; J3370; J7120; J7512; Q9967

== ENCOUNTER → 2020-12-27 17:59 | Outpatient (CLI) | payer MEDICARE, SELFPAY ==
--- NOTE | ~2020-12-27 | XR_ITS ---
XR chest 2V DATE: 12/27/2020 19:14 INDICATION: Pleural effusion TECHNIQUE: Upright 2 view chest COMPARISON: 11/29/2020 portable AP chest 11/27/2020 CT pulmonary scan 11/27/2020 2 view chest 07/04/2014 PA and lateral chest FINDINGS: There is a large right pleural effusion occupying the lower approximately 30-40% of the rig ht chest with associated compressive atelectasis. Status post right upper lobectomy, with mild rightward shift of the heart mediastinum. Emphysematous changes are noted. Soft tissue mass density along the lateral left mid chest; diffusion diagnosis includes pulmonary mal ignancy, pneumonia, infarct. Consider PET/CT imaging. Heart size appears within normal range. Is aortic calcification and ectasia and tortuosity. Diffuse osteopenia. There are multiple fracture deformities of the thoracic spine. IMPRESSION: Increased right pleural effusion and right basilar infiltrate/atelectasis since 11/29/2020 Persistent ill-defined mass density along the lateral left mid chest wall, with concern for possible malignancy. Consider PET/CT imaging. Emphysema Status post right upper lobectomy Aortic calcification, ectasia, tortuosity Prominent diffuse osteopenia with numerous fracture deformities of the thoracic spine again noted Reviewed, dictated and finalized at location A. IMPRESSION: Increased right pleural effusion and right basilar infiltrate/atele ctasis since 11/29/2020 Persistent ill-defined mass density along the lateral left mid chest wall, with concern for possible malignancy. Consider PET/CT imaging. Emphysema Status post right upper lobectomy Aortic calcification, ectasia, tortuosity Prominent diffuse osteopenia with numerous fracture deformities of the thoracic spine again noted
== END ==
PROVIDERS: Visit Provider Internal Medicine Pulmonary Disease
DX: J90 Pleural effusion, not elsewhere classified (principal); J43.9 Emphysema, unspecified; I70.0 Atherosclerosis of aorta
CPT/HCPCS: 71046

== ENCOUNTER 2021-01-04 11:33 | Outpatient (CLI) | payer MEDICARE, SELFPAY ==
--- NOTE | ~2021-01-04 | PE_ITS ---
EXAMINATION: PET skull to mid thigh DATE: 01/04/2021 14:36 INDICATION: Malignant neoplasm of bronchus. Right pleural effusion. TECHNIQUE: Blood glucose level was 97 mg/dL. 9.692 mCi of 18-fluorodeoxyglucose (18-FDG) was administ ered i.v. Low dose computed tomography (CT) images were acquired from the base of the brain to the pr oximal thighs for attenuation correction and anatomic localization. Positron emission tomography (PET ) images were acquired in the same distribution beginning 59 minutes after injection. Images includin g fused PET/CT images were reconstructed in axial, coronal, and sagittal planes. Automated exposure c ontrol technique was employed. The dose-length product was 255.71mGy-cm. COMPARISON: CT dated 11/27/2020 and 02/14/2020 FINDINGS: Head/neck: There is symmetric increased activity in the oral cavity, bilateral parotid glands, laryngeal muscles and ocular muscles without CT correlate, likely physiologic. No pathologically enlarged cervical lym phadenopathy or suspicious foci of increased FDG uptake in the visualized head or neck. Chest: Severe emphysema. Postoperative change of prior right upper lobectomy. Moderate to large right pleura l effusion with atelectasis in the right middle and lower lobes. No abnormal FDG avid lesions in the right hemithorax. Very small posterior layering left pleural effusion and mild dependent atelectasis in the left lower lobe. Moderate increased FDG uptake with maximal SUV of 5.7 associated with a pleur al-based 3.1 x 1.2 cm nodule at the posterolateral aspect of the left upper lobe. Cardiomegaly. Ather osclerotic coronary artery calcification. No pericardial effusion. Ectatic ascending thoracic aorta m easuring up to 4.0 cm. Enlargement of the central pulmonary arteries consistent with pulmonary arteri al hypertension. No evident FDG avid thoracic lymphadenopathy. Abdomen/pelvis/proximal thighs: Physiologic renal accumulation and excretion of FDG activity in the kidneys, bladder and along portio ns of ureters. Nonobstructing 5 mm stone at the lower pole of the left kidney. Normal degree and hete rogenous pattern of increased uptake throughout the nodular, cirrhotic liver without radiologic corre late or dominant FDG avid lesion. The gallbladder, pancreas, spleen and bilateral adrenal glands are normal. Mild uptake scattered throughout the bowels without radiologic correlate, also likely physiol ogic. The uterus is not identified and has likely been surgically resected. No other abnormal foci of increased FDG uptake or pathologically enlarged lymphadenopathy in the abdomen, pelvis or proximal t highs. Small amount of ascites. 9 x 3 x 3 cm intramuscular lipoma along the right adductor alysia mus asaf. Musculoskeletal: Thoracic kyphosis with multiple chronic compression fractures throughout the thoracic spine. A few sm all dense sclerotic bone islands in the lower lumbar spine and pelvis. No suspicious lytic, blastic o r suspicious FDG avid bone lesions. IMPRESSION: 1. Moderate increased FDG uptake associated with a 3.1 x 1.2 cm pleural-based nodule at the posterola teral left upper lobe which could be either malignant or infectious/inflammatory in etiology. If jackie ent is a biopsy candidate not requiring supplemental oxygen at baseline would consider CT-guided perc utaneous biopsy following right-sided thoracentesis to maximize disease noted the right lung compensa tor for any possible iatrogenic left pneumothorax. 2. Moderate to large right pleural effusion without evident FDG avid lesion in the right hemithorax. 3. Cardiomegaly. 4. Enlargement of the central pulmonary arteries consistent with pulmonary arterial hypertension. 5. Severe emphysema. 6. Ectatic ascending thoracic aorta measuring up to 4.0 cm. 7. Cirrhotic liver with small amount of ascites in the pelvis. 8. 5 mm nonobstructing stone at the lower pole of the left kidney.
[2021-01-04 13:04] LABS: Glucose Point of Care 98 mg/dl (65-105)
== END 2021-01-04 11:34 | disposition home or self-care (01) ==
LOC: ANHIMG 11:34
PROVIDERS: PCP Internal Medicine; Visit Provider Nurse Practitioner
DX: J90 Pleural effusion, not elsewhere classified (principal); R91.8 Other nonspecific abnormal finding of lung field; Z85.118 Personal history of other malignant neoplasm of bronchus and lung; J43.9 Emphysema, unspecified; I51.7 Cardiomegaly; K74.69 Other cirrhosis of liver; N20.0 Calculus of kidney
CPT/HCPCS: 36415; 78815; 80053; 83615; 85027; 85610; A9552

== ENCOUNTER 2021-01-04 11:40 | Outpatient (RCR) | payer MEDICARE, SELFPAY | END 2021-04-04 23:59 | disposition home or self-care (01) | LOC: ANHLAB 11:40 | PROVIDERS: PCP Internal Medicine; Visit Provider Nurse Practitioner | DX: E78.5 Hyperlipidemia, unspecified (principal); J90 Pleural effusion, not elsewhere classified | CPT/HCPCS: 99199; 36415; 80053; 83615; 85027; 85610; 89051 ==

== ENCOUNTER 2021-01-05 10:40 | Outpatient (CLI) | payer MEDICARE, SELFPAY ==
[2020-12-29 13:44] VITALS: BMI 18.1
[2021-01-04 15:00] LABS: Hematocrit 38.9 % (37.0-47.0); Hemoglobin 12.1 g/dL (12.0-15.0); Mean Corpuscular HGB Conc 31.1 g/dl (32-36); Mean Corpuscular Hemoglobin 30.3 pg (26-34); Mean Corpuscular Volume 97.3 fl (80-100); Mean Platelet Volume 8.8 fl (7.4-10.4); Platelet Count Result 137 k/mm3 (150-375); Red Cell Distribution Width 13.8 % (11.5-14.5); White Blood Count 3.8 K/mm3 (4.5-10.0)
[2021-01-04 15:10] LABS: INR 0.9; Prothrombin Time 12.1 Seconds (11.1-14.7)
[2021-01-04 15:23] LABS: Alanine Aminotransferase 32 U/L (4-35); Albumin Level 3.4 g/dL (3.5-5.1); Alkaline Phosphatase 176 U/L (38-126); Anion Gap 0 mmol/L (8-16); Aspartate Amino Transferase 48 U/L (14-36); Bilirubin,Total 0.8 mg/dL (0.2-1.3); Blood Urea Nitrogen 17 mg/dL (7-17); Calcium 8.8 mg/dL (8.4-10.2); Carbon Dioxide 37 mmol/L (22-30); Chloride 103 mmol/L (98-107); Estimated Glomerular Filt Rate > 60; Glucose 90 mg/dL (65-110); Lactate Dehydrogenase 403 U/L (313-618); Potassium 4.3 mmol/L (3.4-5.0); Sodium 140 mmol/L (137-145)
[2021-01-05] VITALS (7 sets, daily range): BP systolic 117–156; BP diastolic 71–81; PULSE 89–105; RESP 20–22; O2SAT 93–97
--- NOTE | ~2021-01-05 | XR_ITS ---
EXAMINATION: [id number] DATE: 01/05/2021 11:36 INDICATION: Right pleural effusion. TECHNIQUE: A single frontal view of the chest was obtained. COMPARISON: Chest single view 11/29/2020 FINDINGS: There are changes of right upper lobectomy. There is a small right pleural effusion. There is chronic scarring at right lung apex. There is a mass in peripheral left midlung zone. No pneumotho rax. The heart size is normal. IMPRESSION: 1. Small right pleural effusion. 2. Persistent mass in peripheral left midlung zone suspicious for malignancy. 3. Right upper lobectomy with chronic scarring at right lung apex. Reviewed, dictated and finalized at location A.
--- NOTE | ~2021-01-05 | US_ITS ---
EXAMINATION: US thoracentesis DATE: 01/05/2021 11:37 INDICATION: pleural effusion TECHNIQUE: The procedure and its risks, benefits, and alternatives were discussed with the patient. P otential risks discussed included bleeding, infection, and pneumothorax. The patient understood the r isks and agreed to proceed. The skin was prepped and draped in sterile fashion. 1% lidocaine was used for local anesthesia. Under ultrasound guidance, a 5 Fr catheter with trochar was advanced into the right pleural effusion. Fluid was aspirated. The catheter was removed, and a dressing was applied. Th ere were no immediate complications. FINDINGS: Ultrasound images demonstrate a right pleural effusion and the catheter within the fluid. IMPRESSION: 1. Successful ultrasound-guided thoracentesis yielding 700 mL of dark yellow fluid. Reviewed, dictated and finalized at location A. IMPRESSION: 1. Successful ultrasound-guided thoracentesis yielding 700 mL of dark yellow f luid.
[2021-01-05 15:59] LABS: Pleural fluid source Pleural fluid
[2021-01-05 16:00] LABS: Appearance Pleural Fluid Hazy (Clear); Color Pleural Fluid Yellow (Colorless)
[2021-01-05 16:01] LABS: Lymphocytes Pleural Fluid 83 %; Macrophages Pleural Fluid 1 %; Monocytes Pleural Fluid 16 %; Neutrophils Pleural Fluid 0 % (0-25)
[2021-01-09 21:37] LABS: LDH Pleural Fluid 117 U/L; Total Protein Pleural Fluid <3.0 g/dL
== END 2021-01-05 13:57 | disposition home or self-care (01) ==
PROVIDERS: Radiology Diagnostic Radiology; PCP Internal Medicine; Visit Provider Nurse Practitioner
DX: J90 Pleural effusion, not elsewhere classified (principal); R91.8 Other nonspecific abnormal finding of lung field
CPT/HCPCS: 32555; 36415; 80053; 83615; 83986; 84157; 85027; 85610; 87070; 87075; 87205; 89051

== ENCOUNTER → 2021-01-05 15:32 | Outpatient (REF) | payer MEDICARE, SELFPAY | LOC: ANHLAB 15:32 | PROVIDERS: PCP Internal Medicine; Visit Provider Internal Medicine Pulmonary Disease | DX: J90 Pleural effusion, not elsewhere classified (principal) | CPT/HCPCS: 85060; 88104; 88108; 88305 ==

== ENCOUNTER → 2021-03-09 11:53 | Outpatient (CLI) | payer MEDICARE, SELFPAY ==
--- NOTE | ~2021-03-09 | XR_ITS ---
XR chest 2V 03/09/2021 13:00 Indication: Pleural effusion. Procedure: 2 view chest Comparison: Comparison to multiple prior studies sequentially, with oldest reviewed study dated 11/27. Findings: Enlarging pleural-based mass left mid thorax. Enlarging right pleural effusion which is mod erate sized. There is underlying compressive atelectasis. There are emphysematous changes. There is a therosclerosis of the aorta. There are changes of right upper lobectomy. Impression: 1: Enlarging pleural-based mass left mid thorax. Recommend correlation with contrast-enhanced CT. 2: Enlarging moderate right pleural effusion. Compressive atelectasis of the right lung. 2: Emphysema. Reviewed, dictated and finalized at location A. Impression: 1: Enlarging pleural-based mass left mid thorax. Recommend correlation with con trast-enhanced CT. 2: Enlarging moderate right pleural effusion. Compressive atelectasis of the r ight lung. 2: Emphysema.
== END ==
PROVIDERS: PCP Internal Medicine; Visit Provider Internal Medicine Pulmonary Disease
DX: J90 Pleural effusion, not elsewhere classified (principal); R93.89 Abnormal findings on diagnostic imaging of other specified body structures; J43.9 Emphysema, unspecified
CPT/HCPCS: 71046

== ENCOUNTER 2021-04-03 09:01 | Inpatient (IN) | payer MEDICARE, SELFPAY ==
[2021-04-03] VITALS (49 sets, daily range): BP systolic 91–132; BP diastolic 53–109; PULSE 88–118; RESP 18–32; TEMP 35.9–36.7; O2SAT 70–100
--- NOTE | ~2021-04-03 | CT_ITS ---
EXAMINATION: CTA chest PE protocol DATE: 04/03/2021 10:55 INDICATION: Shortness of breath. TECHNIQUE: Computed tomography angiography (CTA) of the chest was performed with 100 mL Omnipaque-350 intravenous contrast timed to evaluate the pulmonary arteries. Coronal maximum intensity projection 3D-reconstructions were created by the technologist. Automated exposure control and iterative reconst ruction technique were employed. The dose-length product was 148.54 mGy-cm. COMPARISON: Chest CT 11/27/2020 FINDINGS: There are changes of right upper lobectomy. There is volume loss with airspace opacities an d bronchiectasis in right perihilar region, likely radiation fibrosis. There is severe emphysema. The re are large right and moderate-sized left pleural effusions. There is passive atelectasis in the dep endent lower lobes. There are peripheral airspace opacities with hypoenhancement in left upper lobe, consistent with pneumonia. There is diffuse septal thickening in the lungs, consistent with pulmonary edema. Cardiomegaly is noted. There is a small pericardial effusion. There are coronary artery calci fications. There is no pulmonary embolus. The liver demonstrates surface nodularity, consistent with cirrhosis. There is a small volume of perisplenic ascites. There is kyphosis of thoracic spine with m ultiple chronic vertebral body fractures. There is an old fracture of the body of the sternum with no nunion. IMPRESSION: 1. No pulmonary embolus. 2. Left upper lobe pneumonia. 3. Mild pulmonary edema. 4. Severe emphysema. 5. Large right and moderate-sized left pleural effusions. 6. Cardiomegaly. 7. Cirrhosis of the liver. 8. Small volume of ascites. Reviewed, dictated and finalized at location B. WARE TEST MANAGER
--- NOTE | ~2021-04-03 | XR_ITS ---
EXAMINATION: [id number] DATE: 04/03/2021 16:09 INDICATION: Right pleural effusion postthoracentesis TECHNIQUE: frontal view of the chest was obtained. COMPARISON: Chest radiograph dated 01/05/2021 and 03/09/[address] dated 04/03/2021 FINDINGS: Small bilateral pleural effusions at the bilateral lung bases additional small loculated component at the right apex. No pneumothorax. Postoperative changes in the right hemithorax likely related to amberly or right upper lobectomy with multiple surgical clips and suture line at the elevated right hilum as well as an additional suture line at the lateral right upper lung zone. Increase in reticular opaciti es and mild patchy airspace opacities throughout the left lung. Cardiomegaly. Visualized bones and so ft tissues are unremarkable. IMPRESSION: 1. Residual small bilateral pleural effusions post thoracentesis with no pneumothorax. 2. Increasing interstitial and airspace opacities in the left lung which could represent pulmonary ed roseann and/or pneumonia superimposed over moderate emphysema better appreciated on prior CT. 3. Cardiomegaly. Reviewed, dictated and finalized at location A. ICK BUILDER IMPRESSION: 1. Residual small bilateral pleural effusions post thoracentesis with no pneumo thorax. 2. Increasing interstitial and airspace opacities in the left lung which could represent pulmonary edema and/or pneumonia superimposed over moderate emphysema better appreciated on prior CT. 3. Cardiomegaly.
--- NOTE | ~2021-04-03 | US_ITS ---
EXAMINATION: US thoracentesis DATE: 04/03/2021 16:07 INDICATION: Right pleural effusion TECHNIQUE: The procedure and its risks and benefits were discussed with the patient. Potential risks discussed included bleeding, infection, and pneumothorax. The patient understood the risks and agreed to proceed. The skin was prepped and draped in sterile fashion. 1% lidocaine was used for local anes thesia. Under ultrasound guidance, a 5 Fr catheter with trochar was advanced into the right pleural e ffusion. Fluid was aspirated. The catheter was removed, and a dressing was applied. There were no imm ediate complications. FINDINGS: Ultrasound images demonstrate a moderate-sized right pleural effusion and the catheter within the flu id. IMPRESSION: 1. Successful ultrasound-guided thoracentesis yielding 1000 mL of clear hattie-colored fluid. Reviewed, dictated and finalized at location A. NG MACHINE OPERATOR IMPRESSION: 1. Successful ultrasound-guided thoracentesis yielding 1000 mL of clear hattie- colored fluid.
--- NOTE | ~2021-04-03 | XR_ITS ---
EXAMINATION: XR chest 1V portable INDICATION: Shortness of breath TECHNIQUE: Portable AP chest at 0803 hours COMPARISON: 04/03/2021 FINDINGS: The inferolateral left hemithorax is excluded from the examination. There are small pleural effusions with increase on the right. There are minimal airspace opacities of the right mid and lowe r lung zones. Unchanged opacity is seen in the left midlung zone. There is no pneumothorax. Cardiomeg fe is noted. There are surgical changes in the right lung, at the right hilum, and mediastinum. A sm all amount of loculated fluid is noted at the right lung apex. IMPRESSION: 1. Small pleural effusions with increase on the right. 2. Airspace opacities of the right lung and left midlung zone consistent with pneumonia and/or atelec tasis. Reviewed, dictated and finalized at location A. E SCENE TECHNICIAN IMPRESSION: 1. Small pleural effusions with increase on the right. 2. Airspace opacities of the right lung and left midlung zone consistent with p neumonia and/or atelectasis.
--- NOTE | 2021-04-03 09:06 | ECG_ITS ---
Measurements Intervals [place] Rate: 111 P: 37 WI: 149 QRS: 34 QRSD: 94 T: 63 QT: 318 QTc: 433 Interpretive Statements SINUS TACHYCARDIA VENTRICULAR PREMATURE COMPLEX AND FREQUENT ATRIAL PREMATURE COMPLEXES CANNOT RULE OUT SEPTAL INFARCT, AGE INDETERMINATE BORDERLINE ST-T WAVE ABNORMALITY- INF/LAT LEADS BASELINE WANDER- I, II, III, AVF ABNORMAL ECG Electronically Signed On 04-03-2021 9:22:05 LIDAR TECHNICIAN by Jovani Moody D.O.
--- NOTE | 2021-04-03 09:14 | ED.SOB ---
HPI - SOB/Dyspnea General Chief Complaint: Shortness of Breath/Dyspnea Stated Complaint: sob Time Seen by Provider: 04/03/21 09:09 Source: patient Mode of arrival: ambulatory Limitations: no limitations History of Present Illness HPI Narrative: Patient is a 80-year-old female brought in by EMS due to respiratory distress, oxygen saturation when they arrived at the assisted living facility was in the 50s. Placed on nonrebreather oxygen saturation still in the 70s. Patient lives in assisted living facility, EMS was called due to patient in distress. Upon arrival to the emergency room patient is short of breath and in respiratory distress, BiPAP ordered. Unable to get any history from the patient due to her medical condition. Related Data Home Medications Medication Instructions Recorded Confirmed umeclidinium 62.5 mcg-vilanterol 1 inhalation INHALATION QAM 05/24/19 03/14/21 25 mcg/actuation powdr for inhalation levothyroxine [Synthroid] 75 mcg PO QAM 11/27/20 03/14/21 Saccharomyces boulardii 250 mg PO DAILY 12/29/20 03/14/21 acetaminophen 500 mg PO HS 12/29/20 03/14/21 ursodiol 500 mg PO BID 12/29/20 03/14/21 Allergies Allergy/AdvReac Type Severity Reaction Status Date / Time No Known Allergies Allergy Verified 03/14/21 07:10 Review of Systems Review of Systems: ROS unobtainable: Yes unobtainable due to medical condition PMFSH Past Medical History Medical History Adult hypothyroidism Chronic back pain COPD (chronic obstructive pulmonary disease) Depression Encounter for long-term (current) use of other medications History of lung cancer right upper lobe with radiation and right upper lobectomy Hypothyroidism Osteoporosis Primary biliary cirrhosis Surgical History Surgical History H/O: hysterectomy History of lobectomy of lung right upper History of tonsillectomy Family History Family History Mother Carcinoma of colon Patient's mother is Father Patient's father is Family history of malignant neoplasm Sibling Patient's sister is Patient's sister is in good health, Onset Age: 78 Family history of malignant neoplasm of ovary, Onset Age: 76 Carcinoma of colon Other Family history of malignant neoplasm of breast Social History Social History Social History: the patient is . She has 1 biological son and 1 stepson. The patient desires to be a full code. 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 She denies any alcohol marijuana or illicit drugs. Patient is a former smoker. Smoking packs per day: 2 Smoking cigarettes per day: 40.0 Years smoked: 27 Smoking pack-years: 54.00 Smoking status: Former smoker Tobacco type: cigarettes Second hand tobacco smoke exposure: No Smoking end date: 05/12/87 Alcohol intake: never Substance use: never Gender identity (if verbalized by the patient): Female Sexual Orientation (if Verbalized by the Patient): Straight or Heterosexual Spiritual care concerns: No Exam Const: General: ill appearing Limitations: other limitations (Medical condition) Other: Frail, severe distress HENMT: Head: normal to inspection, normocephalic and atraumatic Ears: hearing grossly normal bilaterally, TM normal on the right and TM normal on the left General nose exam: Normal external nose present, Normal nares present and No nasal discharge present Face and sinus: normal facial exam Mouth: Yes Normal oral and palatal mucosa present, Yes lip normal, Yes tongue normal and Yes oropharynx normal Throat: posterior oropharynx normal, tonsils normal and uvula midline Eyes:
--- NOTE | 2021-04-03 09:20 | PC.NURSE ---
Harleen Vail verified he would like blood cultures, blood cultures will be collected before hooking up pt to antibiotics
[2021-04-03] MEDS: ALBUTEROL SULFATE NEB 2.5 MG/0.5 ML INH 5 MG INHALATION ×3 (09:22→20:47)
[2021-04-03] MEDS: IPRATROPIUM BR 0.02% INH SOLN 0.5 MG/2.5 ML VIAL INHALATION ×3 (09:22→20:47)
[2021-04-03 09:27] LABS: Basophils Absolute Auto 0.1 K/mm3 (0.0-0.1); Basophils Percent Auto 0.7 % (0.2-1.2); Eosinophils Absolute Auto 0.3 K/mm3 (0-0.3); Eosinophils Percent Auto 2.9 % (0-4.4); Hematocrit 40.5 % (37.0-47.0); Hemoglobin 12.8 g/dL (12.0-15.0); Immature Granulocyte Absolute 0.04 K/mm3 (0.00-0.031); Immature Granulocyte Percent A 0.4 % (0-0.5); Lymphocytes Absolute Auto 3.49 K/mm3 (0.9-3.2); Lymphocytes Percent Auto 33.5 % (18.3-44.2); Mean Corpuscular HGB Conc 31.6 g/dl (32-36); Mean Corpuscular Hemoglobin 31.8 pg (26-34); Mean Corpuscular Volume 100.7 fl (80-100); Mean Platelet Volume 9.4 fl (7.4-10.4); Monocytes Absolute Auto 0.8 K/mm3 (0.1-0.6); Monocytes Percent Auto 7.8 % (2.6-8.5); Neutrophils Absolute Auto 5.7 K/mm3 (1.3-6.7); Neutrophils Percent Auto 54.7 % (45.5-73.1); Platelet Count Result 234 k/mm3 (150-375); Red Blood Count 4.02 M/mm3 (4.2-5.4); Red Cell Distribution Width 14.1 % (11.5-14.5); White Blood Count 10.4 K/mm3 (4.5-10.0)
[2021-04-03 09:37] LABS: INR 0.9; Partial Thromboplastin Time 26.7 SECONDS (22.3-36.8); Prothrombin Time 12.2 Seconds (11.1-14.7)
[2021-04-03 09:41] LABS: Alveolar/Arterial O2 Gradient 527.1 mmHg; Base Excess ABG 13.3 mEq/l (+/-2.0); Carboxyhemoglobin 0.8 % THb (0-2.0); Fractional Inspired Oxygen 100 %; HCO3 ABG 46.3 mEq/l (22.0-26.0); Methemoglobin ABG 0.1 %THb (0-1.5); Oxygen Content ABG 16.4 %vol (16.0-22.0); PO2 ABG 65.5 mmHg (80.0-100.0); PO2 FiO2 Ratio Arterial Blood 0.65 %; Reduced Hemoglobin 11.1 %THb (0-5.0); Total Hemoglobin 13.2 g/dL (12.0-18.0)
[2021-04-03 09:41] LABS: Alanine Aminotransferase 42 U/L (4-35); Albumin Level 3.7 g/dL (3.5-5.1); Alkaline Phosphatase 191 U/L (38-126); Aspartate Amino Transferase 60 U/L (14-36); Bilirubin,Total 1.1 mg/dL (0.2-1.3); Blood Urea Nitrogen 17 mg/dL (7-17); Calcium 8.9 mg/dL (8.4-10.2); Carbon Dioxide > 40 mmol/L (22-30); Chloride 93 mmol/L (98-107); Estimated Glomerular Filt Rate > 60; Glucose 172 mg/dL (65-110); Potassium 4.1 mmol/L (3.4-5.0); Sodium 137 mmol/L (137-145)
[2021-04-03 09:44] LABS: pH ABG 7.203 (7.350-7.450)
[2021-04-03 09:45] LABS: Device NON-INVASIVE VENT; Modified Allen's Test Pass; Oxygen Saturation ABG 85.9 % (95.0-100.0); PCO2 ABG 120.4 mmHg (35.0-45.0); Site Drawn LEFT RADIAL
[2021-04-03 09:46] LABS: Non-Invasive Expiratory Pressure 5 CMH2O; Non-Invasive Inspiratory Pressure 12 CMH2O; Non-Invasive Vent Rate 20 /MIN
[2021-04-03 09:55] LABS: NT Pro B Type Natriuretic Pept 1020 pg/mL (5-100); Troponin I 0.015 ng/mL (0.000-0.034)
[2021-04-03] MEDS: LACTATED RINGERS 1,000 ML 15 ML IV CONT (11:30)
[2021-04-03 12:05] LABS: Alveolar/Arterial O2 Gradient 569.7 mmHg; Base Excess ABG 10.4 mEq/l (+/-2.0); Carboxyhemoglobin 0.2 % THb (0-2.0); Fractional Inspired Oxygen 100 %; HCO3 ABG 38.4 mEq/l (22.0-26.0); Methemoglobin ABG 0.3 %THb (0-1.5); Oxygen Content ABG 14.8 %vol (16.0-22.0); Oxyhemoglobin 92.8 % THb (90.0-100.0); PO2 ABG 71.8 mmHg (80.0-100.0); PO2 FiO2 Ratio Arterial Blood 0.72 %; Reduced Hemoglobin 6.7 %THb (0-5.0); Total Hemoglobin 11.3 g/dL (12.0-18.0); pH ABG 7.348 (7.350-7.450)
[2021-04-03 12:07] LABS: PCO2 ABG 71.5 mmHg (35.0-45.0)
[2021-04-03 12:08] LABS: Device NON-INVASIVE VENT; Modified Allen's Test Pass; Non-Invasive Expiratory Pressure 5 CMH2O; Non-Invasive Inspiratory Pressure 12 CMH2O; Non-Invasive Vent Rate 20 /MIN; Site Drawn RIGHT RADIAL
--- NOTE | 2021-04-03 12:43 | PM.IMHP ---
H&P: HPI History of Present Illness Date/Time: 04/03/21 12:43 cc: worsening shortness of breath. HPI: Patient is a 80-year-old lady with a past medical history including but not limited to non-small cell lung cancer s/p right upper lobectomy, severe COPD, chronic respiratory failure on 7-8 L of supplemental O2 at home, hypothyroidism, and primary biliary cirrhosis who presented to the emergency department on 11/27/2020 with complaints of shortness of breath ongoing for 2 days. At baseline the patient is chronically short of breath. She is maintained on Anoro Ellipta 62.5-25 at home. At the time of my examination, she was already placed on the BiPAP. She has no active wheezing and there is no reported change in her chronic cough or phlegm production. Brought in by EMS due to respiratory distress, oxygen saturation when they arrived at the assisted living facility was in the 50s. Placed on nonrebreather oxygen saturation still in the 70s. Upon arrival to the emergency room patient is short of breath and in respiratory distress, BiPAP ordered. Unable to get any history from the patient due to her medical condition. Patient is stable and afebrile temperature 35.9?, pulse rate 98, respiration 26, blood pressure 101/84, pulse ox 70% on room air. Patient was started on BiPAP with improvement of pulse oximetry to 88. After a comprehensive conversation with her son, and in accordance with the patient's previously stated wishes, the patient will be a DNR/ DNI. Patient is interested in a palliative care/hospice care evaluation to explore her goals of care, which appear to be mainly focusing on her quality of life at this juncture. I ordered a hospice consult. Her primary certified phlebotomist, Dr. Chaudhari was informed about her admission. Chief Complaint: Worsening shortness of breath. Review of Systems Review of Systems: All systems reviewed & are unremarkable except as noted in HPI and below ROS unobtainable: Yes unobtainable due to medical condition and unobtainable due to mental status PMFSH Past Medical History Medical History Adult hypothyroidism Chronic back pain COPD (chronic obstructive pulmonary disease) Depression Encounter for long-term (current) use of other medications History of lung cancer right upper lobe with radiation and right upper lobectomy Hypothyroidism Osteoporosis Primary biliary cirrhosis Surgical History Surgical History H/O: hysterectomy History of lobectomy of lung right upper History of tonsillectomy Family History Family History Mother Carcinoma of colon Patient's mother is Father Patient's father is Family history of malignant neoplasm Sibling Patient's sister is Patient's sister is in good health, Onset Age: 78 Family history of malignant neoplasm of ovary, Onset Age: 76 Carcinoma of colon Other Family history of malignant neoplasm of breast Social History Social History Social History: the patient is . She has 1 biological son and 1 stepson. The patient desires to be a full code. 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 She denies any alcohol marijuana or illicit drugs. Patient is a former smoker. Smoking packs per day: 2 Smoking cigarettes per day: 40.0 Years smoked: 27 Smoking pack-years: 54.00 Smoking status: Former smoker Tobacco type: cigarettes Second hand tobacco smoke exposure: No Smoking end date: 05/12/87 Alcohol intake: unknown Substance use: unknown Gender identity (if verbalized by the patient): Female Sexual Orientation (if Verbalized by the Patient): Straight or Heterosexual Spiritual ca
--- NOTE | 2021-04-03 13:08 | PC.NURSE ---
Called cullen Don with update
--- NOTE | 2021-04-03 15:20 | PC.NURSE ---
Pt taken to US per US tech, resp. accompanied .
--- NOTE | 2021-04-03 16:30 | PC.NURSE ---
Pt transported with LR running
--- NOTE | 2021-04-03 16:53 | ADMGEN ---
This patient, Jodee Monte, was admitted to IMU Room 204-01. Patient/family oriented to hospital policies and general routines including ID bracelet, bed and alarms, visiting hours, pain management, procedures, bathroom and other care routines, personal items, smoking policy, room service/diet, and visiting hours. Information on how to activate the Rapid Response Team has been discussed. Patient/Family are encouraged to report perceived risks to care and to ask questions if they do not understand what they are told or what they should do.
[2021-04-03] MEDS: ESCITALOPRAM OXALATE 10 MG TABLET 20 MG PO (21:39)
[2021-04-03] MEDS: methylPREDNISolone SOD SUCC 125 MG VIAL 60 MG IV PUSH (21:39)
[2021-04-03] MEDS: ACETAMINOPHEN 500 MG TABLET PO (21:39)
[2021-04-04] VITALS (23 sets, daily range): BP systolic 107–159; BP diastolic 51–69; PULSE 82–111; RESP 19–91; TEMP 36–36.6; O2SAT 91–97
--- NOTE | 2021-04-04 | ECHO_ITS ---
Patient Info Name: Jodee Monte Age: 80 years : 1940 Gender: Female Ht: 62 in Wt: 97 lbs BSA: 1.38 m2 HR: 109 bpm BP: 140 / 90 mmHg Heart Rhythm: Sinus Rhythm, Tachycardia Technical Quality: Good Exam Date: 04/04/2021 10:43 AM Exam Location: [facility] Pulmonary Exam Room: [facility] Patient Status: Inpatient Admit Date: 04/03/2021 Staff Ordering Physician: Gretchen Meza MD Insulation Applicator: ANABEL Attending Provider: Alexander Estevez MD Exam Type: CA echo doppler color flow Study Info Indications - INCREASE SHORT OB BREATH Complete two-dimensional, color flow and Doppler transthoracic echocardiogram is performed. Summary 1. Complete two-dimensional, color flow and Doppler transthoracic echocardiogram is performed. 2. Technically difficult study with limited views. 3. Left ventricular chamber dimension is normal. 4. Left ventricular systolic function is hyperdynamic, estimated at >70%. 5. There is no increased left ventricular wall thickness. 6. The left ventricular diastolic function is abnormal. 7. The aortic valve is not well visualized. 8. There is no clear aortic valve stenosis based on peak velocity mean gradient although valve area calculated 1.8 cm2. 9. There is no aortic valve regurgitation. 10. There is mild mitral valve regurgitation. 11. There is trace tricuspid valve regurgitation. 12. Unable to estimate PA systolic pressure due to poor spectral resolution of tricuspid regurgitant jet velocity. Left Ventricle Left ventricular chamber dimension is normal. Left ventricular systolic function is hyperdynamic, estimated at >70%. There is no increased left ventricular wall thickness. The left ventricular diastolic function is abnormal. Technically difficult study with limited views. Right Ventricle Right ventricular chamber dimension is normal. Right ventricular systolic function is normal. Left Atria Left atrial chamber dimension is not well visualized. Right Atria Right atrial chamber dimension is not well visualized. Aortic Valve The aortic valve is not well visualized. There is no clear aortic valve stenosis based on peak velocity mean gradient although valve area calculated 1.8 cm2. There is no aortic valve regurgitation. Pulmonic Valve The pulmonic valve is not well visualized. There is trace pulmonic regurgitation. Mitral Valve The mitral valve has normal leaflets. There is mild mitral valve regurgitation. The mitral valve annulus is mildly calcified. Tricuspid Valve The tricuspid valve leaflets are normal. There is trace tricuspid valve regurgitation. Unable to estimate PA systolic pressure due to poor spectral resolution of tricuspid regurgitant jet velocity. Pericardium/Pleural The pericardium appears normal. There is trivial pericardial effusion. Inferior Vena Cava Normal inferior vena cava with >50% collapse upon inspiration consistent with normal right atrial pressure, 5 mmHg. Aorta The aortic root size at the sinus of Valsalva is normal. The prox ascending aorta size is normal. There is mild aortic atherosclerosis. Left Ventricular Outflow Tract Name Value Normal LVOT 2D LVOT Diameter 1.9 cm LVOT Dop
[2021-04-04] MEDS: IPRATROPIUM BR 0.02% INH SOLN 0.5 MG/2.5 ML VIAL INHALATION ×4 (00:17→20:36)
[2021-04-04] MEDS: ALBUTEROL SULFATE NEB 2.5 MG/0.5 ML INH 5 MG INHALATION ×3 (00:17→08:09)
--- NOTE | 2021-04-04 00:19 | PCRCNOTE ---
pt refusing the use of BIPAP due to the mask being 'horrible'
[2021-04-04 06:03] LABS: Blood Urea Nitrogen 24 mg/dL (7-17); Calcium 8.6 mg/dL (8.4-10.2); Carbon Dioxide > 40 mmol/L (22-30); Chloride 94 mmol/L (98-107); Estimated Glomerular Filt Rate > 60; Glucose 155 mg/dL (65-110); Potassium 3.8 mmol/L (3.4-5.0); Sodium 140 mmol/L (137-145)
[2021-04-04] MEDS: methylPREDNISolone SOD SUCC 125 MG VIAL 60 MG IV PUSH (06:36)
[2021-04-04] MEDS: LEVOTHYROXINE SODIUM 75 MCG TABLET PO (06:36)
[2021-04-04] MEDS: ENOXAPARIN 30 MG/0.3 ML SYRINGE SUB-Q (08:26)
[2021-04-04] MEDS: FUROSEMIDE 20 MG TABLET PO (08:26)
[2021-04-04] MEDS: UMECLIDINIUM/VILANTEROL 62.5-25 MCG ELLIPTA 1 PUFF INHALATION (08:28)
[2021-04-04 08:30] LABS: Hematocrit 29.9 % (37.0-47.0); Hemoglobin 9.8 g/dL (12.0-15.0); Immature Granulocyte Absolute 0.01 K/mm3 (0.00-0.031); Immature Granulocyte Percent A 0.2 % (0-0.5); Lymphocytes Absolute Auto 0.36 K/mm3 (0.9-3.2); Lymphocytes Percent Auto 6.2 % (18.3-44.2); Mean Corpuscular HGB Conc 32.8 g/dl (32-36); Mean Corpuscular Hemoglobin 31.3 pg (26-34); Mean Corpuscular Volume 95.5 fl (80-100); Mean Platelet Volume 10.4 fl (7.4-10.4); Monocytes Absolute Auto 0.4 K/mm3 (0.1-0.6); Monocytes Percent Auto 6.2 % (2.6-8.5); Neutrophils Absolute Auto 5.1 K/mm3 (1.3-6.7); Neutrophils Percent Auto 87.4 % (45.5-73.1); Platelet Count Result 92 k/mm3 (150-375); Red Blood Count 3.13 M/mm3 (4.2-5.4); Red Cell Distribution Width 13.9 % (11.5-14.5); White Blood Count 5.8 K/mm3 (4.5-10.0)
--- NOTE | 2021-04-04 09:01 | PM.IMPN ---
Progress Note: A&P Assessment and Plan (1) Acute hypercapnic respiratory failure: Code(s): J96.02 - Acute respiratory failure with hypercapnia Status: Acute Assessment and Plan: This is likely related to history of lung cancer, complicated by bowel bilateral pleural effusion. Patient was hypoxic and hypercapnic on presentation. Although her oxygen saturation improved after administration of BiPAP, she remains somehow very uncomfortable and short of breath. We will continue non invasive ventilatory support overnight. Pulmonary was consulted the a.m.. Patient refuses additional BIPAP and declines escalation of oxygen requirements. She states agrees with 15 L oxygen per nasal cannula but does not wish to escalate her supplemental oxygen. If she becomes hypoxic on 15 L she would want to focus on comfort with medications. We will continue bronchodilators. Patient and son wished to consult with [facility] hospice on April 06 and would like to consider being discharged home on hospice (2) Pneumonia: Qualifiers: Laterality: unspecified laterality Lung location: unspecified part of lung Pneumonia type: due to unspecified organism Qualified Code(s): J18.9 - Pneumonia, unspecified organism Code(s): J18.9 - Pneumonia, unspecified organism Status: Acute Assessment and Plan: Patient has a known history of untreated lung cancer. She is chronically short of breath at baseline. However there is an acute deterioration of her shortness of breath this morning. At baseline she requires 7-8 L of oxygen. There is no fever or leukocytosis. However given her cancer she is at high risk of pneumonia. Will treat her for community-acquired pneumonia with a combination of Rocephin and azithromycin. (3) Pleural effusion, bilateral: Code(s): J90 - Pleural effusion, not elsewhere classified Status: Acute Assessment and Plan: Therapeutic thoracentesis performed today with 1 liter of pleural fluid drained. No lab in consideration of current palliative care consult and in accordance with her goals of care.. (4) History of lung cancer: Code(s): Z85.118 - Personal history of other malignant neoplasm of bronchus and lung Status: Acute Assessment and Plan: Albuterol and ipratropium nebulized sedation every 4 hrs. Continue oxygen supplementation and on noninvasive ventilation with BiPAP. Follow-up Pulmonary consult. (5) Depression: Code(s): F32.9 - Major depressive disorder, single episode, unspecified Status: Chronic Assessment and Plan: Continue home medications. (6) Chronic back pain: Code(s): M54.9 - Dorsalgia, unspecified; G89.29 - Other chronic pain Status: Acute Assessment and Plan: Give lidocaine patch. Continue home medications. (7) Hypoxemia: Code(s): R09.02 - Hypoxemia Status: Acute Assessment and Plan: Patient is on chronic oxygen supplementation with 7-8 L of oxygen per minute at home. Continue oxygen supplementation with non invasive ventilatory support. Overall prognosis is very guarded. (8) Primary biliary cirrhosis: Code(s): K74.3 - Primary biliary cirrhosis Status: Acute Assessment and Plan: With small amount of ascites No symptoms otherwise at this time Subjective Date/time seen: 04/04/21 09:01 S: Patient is examined at the bedside. She tolerated her BiPAP overnight. Shortness of breath persists. Currently awaiting pulmonary and hospice care evaluations. She is awake alert oriented x3. She is complaining of persistent shortness of breath. Review of Systems Review of Systems: All systems reviewed & are unremarkable except as noted in HPI and below Constitutional: Constitutional: Reports as per HPI, Reports fatigue, Reports lethargy and Reports malaise Eyes: Eyes: Reports as per HPI and Reports no additional eye complaints ENT: Reports system reviewed and no addition
--- NOTE | 2021-04-04 12:05 | PCSTNOTE ---
Please refer to the Bedside Swallow Evaluation in the EMR. Please note, silent aspiration cannot be ruled out at bedside.
--- NOTE | 2021-04-04 13:38 | PM.CNPUL ---
Assessment and Plan Assessment and plan (1) COPD (chronic obstructive pulmonary disease): Code(s): J44.9 - Chronic obstructive pulmonary disease, unspecified Status: Acute Assessment and Plan: Patient carries a diagnosis of COPD since 2004 and has apical predominant severe panlobular emphysema on her CT scan of the chest from 11/27/2020. I have no PFTs. Patient is chronically on 7-8 L nasal cannula and Is maintained on Anoro Ellipta 62.5-25 at home. She has no active wheezing at this time and no change in her chronic cough or phlegm production. I will place her on nebulized albuterol 2.5 mg q.4 hours and ipratropium 0.5 mg nebulized q.4 hours. There is no evidence of an ache active COPD exacerbation and I do not feel there is a need for inhaled or systemic steroids at this point. Patient is DNR, DNI and no BiPAP in the future. She states she is okay with 15 L oxygen per nasal cannula but does not wish to escalate her supplemental oxygen. If she becomes hypoxic on 15 L she would want to focus on comfort with medications. Patient does wish to consult with the hospice team and I placed this order and informed the bedside nurse. Of note patient is has a left pleural base PET-positive mass and she has declined workup of this mass previously. She still wishes for no additional workup of this mass at this time. Discussed with son who was in the room. Discussed with Dr. Meza Will follow with you. (2) Community acquired pneumonia: Code(s): J18.9 - Pneumonia, unspecified organism Status: Acute Assessment and Plan: Patient with new infiltrates in her left upper lobe and I agree with ceftriaxone and azithromycin at this time. Blood cultures are negative. (3) Acute on chronic respiratory failure with hypercapnia: Code(s): J96.22 - Acute and chronic respiratory failure with hypercapnia Status: Acute Assessment and Plan: Patient has evidence of hypercarbic respiratory failure with lethargy and a blood gas of 7.20/120/66. patient was placed on BiPAP and repeat blood gas demonstrated a pH of 7.35/72/72. currently she has told me the BiPAP mask is uncomfortable and she does not wish to wear it any more. I have discontinued BiPAP order in the computer. Patient currently on 15 L high-flow nasal cannula and she does not wish to escalate this. History of Present Illness History of Present Illness Consult date: 04/04/21 Requesting physician: Gretchen Meza MD Reason for consult: hypoxemia Chief complaint: Acute respiratory failure/pneumonia Narrative: 04/04/2021: This is a new Pulmonary consult for hypoxemic and hypercarbic respiratory failure 80-year-old woman with a history of COPD, chronic hypoxemic respiratory failure on 6-7 L nasal cannula with rest, ambulation and at night, non-small cell lung cancer status post right upper lobectomy in 1987, breast cancer in 2007 and 2008 treated with radiation, squamous cell cancer of the neck who I follow in the pulmonary clinic. She presented to the hospital on 11/28/2020 with COPD exacerbation and a large right pleural effusion. she was noted to have a transudative right pleural effusion and a left-sided pleural based mass. PET scan on 01/04/2021 demonstrated the left pleural mass was PET positive and I recommended a CT-guided biopsy. The patient declined and said she did not want any additional testing on the left lung mass. As an outpatient I increased her Lasix for her right transudative pleural effusion. Patient continued with worsening shortness of breath and called the clinic on 02/07 and I increased her Lasix. She had continued worsening shortness of breath and hypoxemia in on 03/08 I referred her for a chest x-ray that demonstrated enlarging pleural based mass in the left mid thorax and enlarging right pleural effusion. She again told me she wanted no treatment for the left lung mass we talked about opt
--- NOTE | 2021-04-04 17:21 | PM.IMCN ---
Assessment and Plan Assessment and plan (1) Pneumonia: Qualifiers: Laterality: unspecified laterality Lung location: unspecified part of lung Pneumonia type: due to unspecified organism Qualified Code(s): J18.9 - Pneumonia, unspecified organism Code(s): J18.9 - Pneumonia, unspecified organism Status: Acute Assessment and Plan: Continue ceftriaxone and azithromycin (2) COPD (chronic obstructive pulmonary disease): Qualifiers: COPD type: unspecified COPD Qualified Code(s): J44.9 - Chronic obstructive pulmonary disease, unspecified Code(s): J44.9 - Chronic obstructive pulmonary disease, unspecified Status: Acute Assessment and Plan: Continue Solu-Medrol, ipratropium, albuterol (3) Acute on chronic respiratory failure with hypercapnia: Code(s): J96.22 - Acute and chronic respiratory failure with hypercapnia Status: Acute Assessment and Plan: Continue oxygen 15 L by high-flow nasal cannula nasal Continue steroids and bronchodilators Patient and son wished to consult with [facility] hospice on April 06 and would like to consider being discharged home on hospice (4) Pleural effusion, bilateral: Code(s): J90 - Pleural effusion, not elsewhere classified Status: Acute Assessment and Plan: Previously transudate No diagnostic studies ordered on current fluid due to patient and son is desire to avoid further intervention (5) Lung mass: Code(s): R91.8 - Other nonspecific abnormal finding of lung field Status: Acute Assessment and Plan: With positive PET scan this is likely malignant (6) Primary biliary cirrhosis: Code(s): K74.3 - Primary biliary cirrhosis Status: Acute Assessment and Plan: With small amount of ascites No symptoms otherwise at this time (7) Adult hypothyroidism: Code(s): E03.9 - Hypothyroidism, unspecified Status: Acute Assessment and Plan: Continue levothyroxine HPI Data of Consult Consult date: 04/04/21 Requesting Physician: Mahendra Estevez MD Primary Care Provider: Keyshawn Miramontes DO Consult Narrative Narrative: Jodee Monte is a 80 year old female with progressive decline in functional status and increasing dyspnea. She has had declining appetite. Was hospitalized April 03 with left upper lobe pneumonia. Treated with azithromycin ceftriaxone. Required BiPAP for acute hypercarbic and hypoxemic respiratory failure. Currently on 15 L oxygen by nasal cannula. At home is on 6 L by nasal cannula chronically. She is feeling better today but still very short of breath with minimal exertion including conversation. Her appetite is poor. She has generalized weakness and fatigue. She has chronic back pain but no acute pain. Main issues are dyspnea and weakness and inability to care for herself. Current palliative performance score is 30. She has decided that she does not want further invasive procedures, mechanical ventilation, cardiopulmonary resuscitation, or BiPAP. She would like to continue oral medications were her long-term issues as well as oxygen. She would like to have palliative medications to assist with pain and dyspnea and anxiety. Review of Systems Review of Systems: Fatigue. Dyspnea with any exertion including conversation. Chronic back pain. Poor appetite. [facility] Past Medical History Medical History Adult hypothyroidism Chronic back pain COPD (chronic obstructive pulmonary disease) Depression Encounter for long-term (current) use of other medications History of lung cancer right upper lobe with radiation and right upper lobectomy Hypothyroidism Osteoporosis Primary biliary cirrhosis Surgical History Surgical History H/O: hysterectomy History of lobectomy of lung right upper History of tonsillectomy Family
[2021-04-04] MEDS: ALBUTEROL SULFATE NEB 2.5 MG/0.5 ML INH INHALATION (20:36)
[2021-04-04] MEDS: ESCITALOPRAM OXALATE 10 MG TABLET 20 MG PO (22:27)
[2021-04-04] MEDS: ACETAMINOPHEN 500 MG TABLET PO (22:28)
[2021-04-05] VITALS (11 sets, daily range): BP systolic 99–170; BP diastolic 48–80; PULSE 91–112; RESP 20–31; TEMP 35.4–36.6; O2SAT 81–98
[2021-04-05 04:55] LABS: Basophils Percent Auto 0.2 % (0.2-1.2); Hematocrit 34.6 % (37.0-47.0); Hemoglobin 11.3 g/dL (12.0-15.0); Immature Granulocyte Absolute 0.04 K/mm3 (0.00-0.031); Immature Granulocyte Percent A 0.4 % (0-0.5); Lymphocytes Absolute Auto 1.33 K/mm3 (0.9-3.2); Mean Corpuscular HGB Conc 32.7 g/dl (32-36); Mean Corpuscular Hemoglobin 31.7 pg (26-34); Mean Corpuscular Volume 97.2 fl (80-100); Mean Platelet Volume 9.1 fl (7.4-10.4); Monocytes Absolute Auto 1.1 K/mm3 (0.1-0.6); Monocytes Percent Auto 9.6 % (2.6-8.5); Neutrophils Absolute Auto 8.6 K/mm3 (1.3-6.7); Neutrophils Percent Auto 77.8 % (45.5-73.1); Platelet Count Result 167 k/mm3 (150-375); Red Blood Count 3.56 M/mm3 (4.2-5.4); Red Cell Distribution Width 14.2 % (11.5-14.5); White Blood Count 11.1 K/mm3 (4.5-10.0)
[2021-04-05 05:20] LABS: Blood Urea Nitrogen 21 mg/dL (7-17); Calcium 8.5 mg/dL (8.4-10.2); Carbon Dioxide > 40 mmol/L (22-30); Chloride 92 mmol/L (98-107); Estimated Glomerular Filt Rate > 60; Glucose 103 mg/dL (65-110); Potassium 3.7 mmol/L (3.4-5.0); Sodium 140 mmol/L (137-145)
--- NOTE | 2021-04-05 05:20 | PC.NURSE ---
O2 sats have fallen to the low 80s Continues on 15L High Flow Cannula. Refusing BIPAP. Currently a DNR/DNI, waiting on Hospice consult and placement. Will get a stat nebulizer treatment. Breath sounds are extremely diminished bilaterally. VSS. O2Sat currently 85%.
[2021-04-05] MEDS: ALBUTEROL SULFATE NEB 2.5 MG/0.5 ML INH INHALATION (05:26)
[2021-04-05] MEDS: IPRATROPIUM BR 0.02% INH SOLN 0.5 MG/2.5 ML VIAL INHALATION (05:27)
--- NOTE | 2021-04-05 05:44 | PC.NURSE ---
RT here for nebulizer treatment. O2 Sat still 85%. Patient now agreeable to BIPAP. BIPAP settings 12/5, rate 20, 100%. O2 sat up to 95%. Will monitor closely.
--- NOTE | 2021-04-05 07:56 | PM.IMPN ---
Progress Note: A&P Assessment and Plan (1) Acute hypercapnic respiratory failure: Code(s): J96.02 - Acute respiratory failure with hypercapnia Status: Acute Assessment and Plan: This is likely related to history of lung cancer, complicated by bowel bilateral pleural effusion, and pneumonia. Patient was hypoxic and hypercapnic on presentation. Patient was declined for inpatient hospice on 04/04/2021. Overnight she acutely deteriorated. She was started on BiPAP. This morning patient son wants to go ahead with previously stated wishes and stop the BiPAP. We will stop noninvasive ventilatory support and start the patient on intermittent low doses of morphine for comfort. We will continue bronchodilators. Patient' son wished to reconsult with [facility] today on April 05 given the current development. (2) Pneumonia: Qualifiers: Laterality: unspecified laterality Lung location: unspecified part of lung Pneumonia type: due to unspecified organism Qualified Code(s): J18.9 - Pneumonia, unspecified organism Code(s): J18.9 - Pneumonia, unspecified organism Status: Acute Assessment and Plan: Patient has a known history of untreated lung cancer. She is chronically short of breath at baseline. However there is an acute deterioration of her shortness of breath this morning. At baseline she requires 7-8 L of oxygen. There is no fever or leukocytosis. However given her cancer she is at high risk of pneumonia. She has been treated for community-acquired pneumonia with a combination of Rocephin and azithromycin. Continue IV antibiotics (3) Pleural effusion, bilateral: Code(s): J90 - Pleural effusion, not elsewhere classified Status: Acute Assessment and Plan: Therapeutic thoracentesis performed today with 1 liter of pleural fluid drained. No lab in consideration of current palliative care consult and in accordance with her goals of care.. (4) History of lung cancer: Code(s): Z85.118 - Personal history of other malignant neoplasm of bronchus and lung Status: Acute Assessment and Plan: Albuterol and ipratropium nebulization every 4 hrs. Continue oxygen supplementation and on noninvasive ventilation with BiPAP. Follow-up Pulmonary consult. (5) Depression: Code(s): F32.9 - Major depressive disorder, single episode, unspecified Status: Chronic Assessment and Plan: Continue home medications. (6) Chronic back pain: Code(s): M54.9 - Dorsalgia, unspecified; G89.29 - Other chronic pain Status: Acute Assessment and Plan: Continue lidocaine patch. Continue home medications. (7) Hypoxemia: Code(s): R09.02 - Hypoxemia Status: Acute Assessment and Plan: Patient is on chronic oxygen supplementation with 7-8 L of oxygen per minute at home. Continue oxygen supplementation with non invasive ventilatory support. Overall prognosis is very guarded. (8) Primary biliary cirrhosis: Code(s): K74.3 - Primary biliary cirrhosis Status: Acute Assessment and Plan: Small amount of ascites of uncertain clinical significance. No symptoms otherwise at this time Subjective Date/time seen: Narrative: This is a 80 year old lady with a past medical history including but limited to COPD, untreated lung cancer, chronic respiratory failure on oxygen 7-8 L at home, progressive functional status decline and worsening dyspnea. She has had declining appetite. She is currently being treated for acute on chronic respiratory failure after presenting with worsening shortness of breath on April 03, 2021 and diagnosis with left upper lobe pneumonia. She underwent thoracentesis with 1 L fluid drainage. She was appropriately treated with ceftriaxone and Zithromax, while undergoing aggressive pulmonary toilet with albuterol and I portable view. She Required BiPAP for acute hypercarbic and hypoxemic respiratory failure.
[2021-04-05] MEDS: LORazepam INJ (*CRX) 2 MG/ML VIAL 0.5 MG IV PUSH (08:37)
[2021-04-05] MEDS: MORPHINE SULFATE (*CRX) 2 MG/ML INJ 1 MG IV PUSH (10:33)
--- NOTE | 2021-04-05 13:32 | PM.DS ---
DS: Admitting Diagnosis Discharge Date 04/05/21 Admitting Diagnosis Acute on chronic respiratory failure Pleural effusion. DS: Discharge Diagnosis Discharge Diagnosis (1) Acute hypercapnic respiratory failure: Code(s): J96.02 - Acute respiratory failure with hypercapnia Status: Acute Assessment and Plan: This is likely related to history of lung cancer, complicated by bowel bilateral pleural effusion, and pneumonia. Patient was hypoxic and hypercapnic on presentation. Patient was declined for inpatient hospice on 04/04/2021. Overnight she acutely deteriorated. She was started on BiPAP. This morning patient son wants to go ahead with previously stated wishes and stop the BiPAP. We will stop noninvasive ventilatory support and start the patient on intermittent low doses of morphine for comfort. We will continue bronchodilators. Patient' son wished to reconsult with [facility] today on April 05 given the current development. (2) Pneumonia: Qualifiers: Laterality: unspecified laterality Lung location: unspecified part of lung Pneumonia type: due to unspecified organism Qualified Code(s): J18.9 - Pneumonia, unspecified organism Code(s): J18.9 - Pneumonia, unspecified organism Status: Acute Assessment and Plan: Patient has a known history of untreated lung cancer. She is chronically short of breath at baseline. However there is an acute deterioration of her shortness of breath this morning. At baseline she requires 7-8 L of oxygen. There is no fever or leukocytosis. However given her cancer she is at high risk of pneumonia. She has been treated for community-acquired pneumonia with a combination of Rocephin and azithromycin. Continue IV antibiotics (3) Pleural effusion, bilateral: Code(s): J90 - Pleural effusion, not elsewhere classified Status: Acute Assessment and Plan: Therapeutic thoracentesis performed today with 1 liter of pleural fluid drained. No lab in consideration of current palliative care consult and in accordance with her goals of care.. (4) History of lung cancer: Code(s): Z85.118 - Personal history of other malignant neoplasm of bronchus and lung Status: Acute Assessment and Plan: Albuterol and ipratropium nebulization every 4 hrs. Continue oxygen supplementation and on noninvasive ventilation with BiPAP. Follow-up Pulmonary consult. (5) Depression: Code(s): F32.9 - Major depressive disorder, single episode, unspecified Status: Chronic Assessment and Plan: Continue home medications. (6) Chronic back pain: Code(s): M54.9 - Dorsalgia, unspecified; G89.29 - Other chronic pain Status: Acute Assessment and Plan: Continue lidocaine patch. Continue home medications. (7) Hypoxemia: Code(s): R09.02 - Hypoxemia Status: Acute Assessment and Plan: Patient is on chronic oxygen supplementation with 7-8 L of oxygen per minute at home. Continue oxygen supplementation with non invasive ventilatory support. Overall prognosis is very guarded. (8) Primary biliary cirrhosis: Code(s): K74.3 - Primary biliary cirrhosis Status: Acute Assessment and Plan: Small amount of ascites of uncertain clinical significance. No symptoms otherwise at this time DS: Summary Hospital Course Reason for hospitalization: Worsening shortness of breath. Hospital Course: Please refer to admission H&P. Briefly, this patient is a 80-year-old lady with a past medical history including but not limited to non-small cell lung cancer s/p right upper lobectomy, severe COPD, chronic respiratory failure on 7-8 L of supplemental O2 at home, hypothyroidism, and primary biliary cirrhosis who presented to the emergency department on 11/27/2020 with complaints of shortness of breath ongoing for 2 days. At baseline the patient is chronically short of breath. She is maintained on Anoro Ellipta 6
== END 2021-04-05 11:42 | disposition hospice, inpatient (51) | DRG 193 ==
LOC: ANHED 11:26 → ANHIMU 16:18
PROVIDERS: Admitting Provider Internal Medicine; Emergency Provider Emergency Medicine; PCP Internal Medicine; Visit Provider Internal Medicine
DX: J18.9 Pneumonia, unspecified organism (principal); J96.22 Acute and chronic respiratory failure with hypercapnia; J96.21 Acute and chronic respiratory failure with hypoxia; J44.0 Chronic obstructive pulmonary disease with (acute) lower respiratory infection; J90 Pleural effusion, not elsewhere classified; K74.3 Primary biliary cirrhosis; R09.02 Hypoxemia; M54.9 Dorsalgia, unspecified; G89.29 Other chronic pain; F32.9 Major depressive disorder, single episode, unspecified; E03.9 Hypothyroidism, unspecified; M81.0 Age-related osteoporosis without current pathological fracture; Z66 Do not resuscitate; Z85.118 Personal history of other malignant neoplasm of bronchus and lung; Z90.710 Acquired absence of both cervix and uterus; Z87.891 Personal history of nicotine dependence; Z85.3 Personal history of malignant neoplasm of breast; Z99.81 Dependence on supplemental oxygen
CPT/HCPCS: 32555; 36415; 36600; 71045; 71275; 80048; 80053; 82375; 82805; 83050; 83880; 84484; 85025; 85610; 85730; 87040; 92610; 93005; 93306; 94002; 94003; 94640; 94660; 96365; 96367; 96375; 99291; A9270; J0456; J0696; J1100; J1650; J2060; J2270; J2930; J7120; Q9967

== ENCOUNTER 2021-04-05 11:15 | HOS | payer OTHER, MEDICARE, SELFPAY ==
--- NOTE | 2021-04-05 12:09 | PM.IMHP ---
H&P: HPI History of Present Illness Date/Time: 04/05/21 12:09 Jodee Monte is a 80 year old female with progressive decline in functional status and increasing dyspnea. She has had declining appetite. Was hospitalized April 03 with left upper lobe pneumonia. Treated with azithromycin ceftriaxone. Required BiPAP for acute hypercarbic and hypoxemic respiratory failure. Currently on 15 L oxygen by nasal cannula. At home is on 6 L by nasal cannula chronically. She was feeling better 04/04 but still very short of breath with minimal exertion including conversation. Her appetite is poor. She has generalized weakness and fatigue. She has chronic back pain but no acute pain. Main issues are dyspnea and weakness and inability to care for herself. 04/04 palliative performance score is 30. She has decided that she does not want further invasive procedures, mechanical ventilation, cardiopulmonary resuscitation, or BiPAP. 04/05 overnight she was placed on bipap due to worsened dyspnea and resp failure. She has not been responsive since. Her son, Ivan opted for inpatient hospice due to her uncontrolled dyspnea. This improved with morphine 1mg ivp and the bipap was removed. Chief Complaint: uncontrolled dyspnea Review of Systems Review of Systems: ROS unobtainable: Yes unobtainable due to medical condition PMFSH Past Medical History Medical History Adult hypothyroidism Chronic back pain COPD (chronic obstructive pulmonary disease) Depression Encounter for long-term (current) use of other medications History of lung cancer right upper lobe with radiation and right upper lobectomy Hypothyroidism Osteoporosis Primary biliary cirrhosis Surgical History Surgical History H/O: hysterectomy History of lobectomy of lung right upper History of tonsillectomy Family History Family History Mother Carcinoma of colon Patient's mother is Father Patient's father is Family history of malignant neoplasm Sibling Patient's sister is Patient's sister is in good health, Onset Age: 78 Family history of malignant neoplasm of ovary, Onset Age: 76 Carcinoma of colon Other Family history of malignant neoplasm of breast Social History Social History Social History: the patient is . She has 1 biological son and 1 stepson. The patient desires to be a full code. 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 She denies any alcohol marijuana or illicit drugs. Patient is a former smoker. Smoking packs per day: 2 Smoking cigarettes per day: 40.0 Years smoked: 27 Smoking pack-years: 54.00 Smoking status: Former smoker Tobacco type: cigarettes Second hand tobacco smoke exposure: No Smoking end date: 05/12/87 Alcohol intake: unknown Substance use: unknown Gender identity (if verbalized by the patient): Female Sexual Orientation (if Verbalized by the Patient): Straight or Heterosexual Spiritual care concerns: No Meds Home Medications and Allergies Home Medications Medication Instructions Recorded Confirmed Type umeclidinium 62.5 mcg-vilanterol 1 inhalation INHALATION QAM 05/24/19 04/03/21 History 25 mcg/actuation powdr for inhalation levothyroxine [Synthroid] 75 mcg PO QAM 11/27/20 04/03/21 History acetaminophen 500 mg PO HS 12/29/20 04/03/21 History ursodiol 500 mg PO BID 12/29/20 04/03/21 History alendronate 70 mg tablet 70 mg PO WEEKLY #12 tablet 02/15/21 04/03/21 Rx escitalopram oxalate 20 mg tablet 20 mg PO HS #90 tablet 03/29/21 04/03/21 Rx furosemide 20 mg tablet 20 mg PO QAM #30 tablet 03/29/21 04/03/21 Rx Allergies A
[2021-04-05] MEDS: MORPHINE SULFATE INJ (*CRX) 50 MG in SODIUM CHLORIDE 0.9% IV 95 ML IV CONT (13:21)
[2021-04-05] MEDS: MORPHINE SULFATE (*CRX) 2 MG/ML INJ 1 MG IV PUSH (15:05)
[2021-04-05 15:10] VITALS: O2SAT 40
--- NOTE | 2021-04-05 16:32 | PC.NURSE ---
This patient, Jodee Monte, was transferred to [facility] on 04/05/21 at 1632. Personal belongings sent with patient. Report given to EDWIN Bermeo. Appropriate documentation sent with patient.
[2021-04-05 17:06] VITALS: BP 105/43; PULSE 91; O2SAT 45
[2021-04-05] MEDS: LORazepam INJ (*CRX) 2 MG/ML VIAL 1 MG IV PUSH (23:15)
--- NOTE | 2021-04-06 16:28 | P.DN_ITS ---
Discharge Summary Date and Time Date of : 04/06/21 Time of : 04:45 Provider Pronounced By: Artemio Franz RN Probable Cause of Probable Cause of : copd with pneumonia and acute on chronic hypoxic and hypercapneic respiratory failure Summary Hospital Course: Admitted to inpatient hospice service due to uncontrolled dyspnea. Medications were titrated to comfort. Patient peacefully. Additional Data Confirmation of as documented by pronouncing clinician: Pupillary Reflex, Response to Stimuli, Heart Tones and Breath Sounds Name of Provider Notified: [facility] to notify Dr. Ruben Doss. Janice notified at [id number]. Provider Requests Autopsy: No Medical Billing Representative Notified: Yes Date [facility] Notified of : 04/06/21 Time [facility] Notified of : 05:09
== END 2021-04-06 04:45 | disposition expired | DRG 951 ==
LOC: ANH3MED 04-10 14:10 → ANHIMU 04-10 14:10
PROVIDERS: Admitting Provider Internal Medicine; PCP Internal Medicine; Visit Provider Internal Medicine
DX: Z51.5 Encounter for palliative care (principal); J96.21 Acute and chronic respiratory failure with hypoxia; J96.22 Acute and chronic respiratory failure with hypercapnia; J18.9 Pneumonia, unspecified organism; J44.0 Chronic obstructive pulmonary disease with (acute) lower respiratory infection; R91.8 Other nonspecific abnormal finding of lung field; E03.9 Hypothyroidism, unspecified; K74.3 Primary biliary cirrhosis; Z66 Do not resuscitate; Z85.118 Personal history of other malignant neoplasm of bronchus and lung; Z87.891 Personal history of nicotine dependence
CPT/HCPCS: A9270; J2060; J2270